=== PATIENT | male | born 1950 | race Caucasian/White ===

== ENCOUNTER 2016-12-18 20:01 | Emergency (ER) | payer OTHER ==
[2016-12-18 20:19] VITALS: BMI 32.8
--- NOTE | 2016-12-18 21:50 | PDOC ---
History of Present Illness - General History Source: Patient, Family Exam Limitations: No Limitations - History of Present Illness Initial Comments: 12/18/16 22:02 Patient is a 66 year old male with no pmhx who presents to the ED with fever, diarrhea and chills. As per family the patient was feeling okay all day and at 5 PM he had soup that was in the refrigerator for few days. Few hours after the patient notes that he developed abdominal discomfort and had diarrhea and chills. He reports having good appetite.even after the episode. He states that he developed fever as well. He saw his PMD this morning and had a normal check up. <Opal Hwang - Last Filed: 12/18/16 22:02> <Komal Moore - Last Filed: 12/19/16 01:00> - General Chief Complaint: Cold Symptoms Stated Complaint: FEVER Time Seen by Provider: 12/18/16 21:50 Past History <Opal Hwang - Last Filed: 12/18/16 22:02> - Suicide/Smoking/Psychosocial Hx Smoking History: Never smoked Hx Alcohol Use: No Drug/Substance Use Hx: No <Komal Moore - Last Filed: 12/19/16 01:00> - Past Medical History Allergies/Adverse Reactions: Allergies Allergy/AdvReac Type Severity Reaction Status Date / Time No Known Allergies Allergy Verified 12/18/16 20:19 Home Medications: Ambulatory Orders Aspirin [ASA -] 81 mg PO DAILY 12/19/16 Metformin HCl [Glucophage] 1,000 mg PO DAILY 12/19/16 Review of Systems - Review of Systems Able to Perform ROS?: Yes Comments:: 12/18/16 22:02 GENERAL/CONSTITUTIONAL: +fever and chills. No weakness. HEAD, EYES, EARS, NOSE AND THROAT: No change in vision. No ear pain or discharge. No sore throat. GASTROINTESTINAL: +diarrhea. No nausea, vomiting or constipation. GENITOURINARY: No dysuria, frequency, or change in urination. CARDIOVASCULAR: No chest pain or shortness of breath. RESPIRATORY: No cough, wheezing, or hemoptysis. MUSCULOSKELETAL: No joint or muscle swelling or pain. No neck or back pain. SKIN: No rash NEUROLOGIC: No headache, vertigo, loss of consciousness, or change in strength/ sensation. ENDOCRINE: No increased thirst. No abnormal weight change. HEMATOLOGIC/LYMPHATIC: No anemia, easy bleeding, or history of blood clots. ALLERGIC/IMMUNOLOGIC: No hives or skin allergy. <Opal Hwang - Last Filed: 12/18/16 22:02> *Physical Exam - Vital Signs Last Vital Signs Temp Pulse Resp BP Pulse Ox 103.1 F H 103 H 20 131/74 99 12/18/16 20:13 12/18/16 20:13 12/18/16 20:13 12/18/16 20:13 12/18/16 20:13 <Opal Hwang - Last Filed: 12/18/16 22:02> - Vital Signs Last Vital Signs Temp Pulse Resp BP Pulse Ox 103.1 F H 103 H 20 131/74 99 12/18/16 20:13 12/18/16 20:13 12/18/16 20:13 12/18/16 20:13 12/18/16 20:13 - Physical Exam Comments: GENERAL: Awake, alert, and fully oriented, in no acute distress HEAD: No signs of trauma EYES: PERRLA, EOMI, sclera anicteric, conjunctiva clear ENT: Auricles normal inspection, hearing grossly normal, nares patent, oropharynx clear without exudates. Dry mucosa NECK: Normal ROM, supple, no lymphadenopathy, JVD, or masses LUNGS: Breath sounds equal, clear to auscultation bilaterally. No wheezes, and no crackles HEART: Regular rate and rhythm, normal S1 and S2, no murmurs, rubs or gallops ABDOMEN: Soft, nontender, normoactive bowel sounds. No guarding, no rebound. No masses EXTREMITIES: Normal range of motion, no edema. No clubbing or cyanosis. No cords, erythema, or tenderness NEUROLOGICAL: Cranial nerves II through XII grossly intact. Normal speech, normal gait SKIN: Warm, Dry, normal turgor, no rashes or lesions noted. <Komal Moore - Last Filed: 12/19/16 01:00> ED Treatment Course - LABORATORY CBC & Chemistry Diagram: 12/19/16 00:00 12/19/16 00:00 <Komal Moore - Last Filed: 12/19/16 01:00> *DC/Admit/Observation/Transfer - Attestations Scribe Attestion: 12/18/16 22:03 Documentation prepared by RAHEL Lozano, acting as general medical practitioner for Komal Moore MD. <Opal Hwang - Last Filed: 12/18/16 22:02> - Discharge Dispostion Admit: No <Komal Moore - Last Filed: 12/19/16 01:00> Diagnosis at time of Disposition: Fever Qualifiers: Fever type: unspecified Qualified Code(s): R50.9 - Fever, unspecified; R50.9 - Fever, unspecified - Discharge Dispostion Disposition: HOME Condition at time of disposition: Stable - Referrals Referrals: Homar Hidalgo MD [Primary Care Provider] -
[2016-12-18] MEDS ORDERED: ACETAMINOPHEN 325 MG TABLET (FP) PO ONE (21:57)
[2016-12-18] MEDS ORDERED: ACETAMINOPHEN 500 MG TABLET (FP) PO ONE (22:24)
[2016-12-18] MEDS ORDERED: ACETAMINOPHEN 325 MG TABLET (FP) ONE (22:30)
[2016-12-18 22:37] VITALS: TEMP 99.8
[2016-12-18] MEDS ORDERED: SODIUM CHLORIDE 1,000 ML IV STA (23:26)
[2016-12-19 00:14] LABS: BASOPHIL 0.7 % (0-2.0); EOSINOPHIL 3.9 % (0-4.5); MCH 31.8 pg (25.7-33.7); MCHC 34.1 g/dl (32.0-35.9); MEAN CELL VOLUME 93.2 fl (80-96); MEAN PLT VOLUME 7.7 fl (7.5-11.1); NEUTROPHILS 77.4 % (42.8-82.8); PLATELET COUNT 223 K/MM3 (134-434); RDW 13.1 % (11.9-15.9); WHITE BLOOD COUNT 11.4 K/mm3 (4.0-10.0)
[2016-12-19 00:20] LABS: URINE APPEARANCE CLEAR; URINE BILIRUBIN NEGATIVE (NEGATIVE); URINE BLOOD NEGATIVE (NEGATIVE); URINE COLOR COLORLESS; URINE GLUCOSE (UA) NEGATIVE (NEGATIVE); URINE KETONE NEGATIVE (NEGATIVE); URINE NITRITE NEGATIVE (NEGATIVE); URINE PROTEIN NEGATIVE (NEGATIVE); URINE UROBILINOGEN NEGATIVE mg/dL (0.2-1.0)
[2016-12-19 00:43] LABS: ALBUMIN 3.8 g/dl (3.4-5.0); ANION GAP 11 (8-16); CALCIUM 8.4 mg/dL (8.5-10.1); CO2 25 mmol/L (21-32); CREATININE 1.2 mg/dL (0.7-1.3); GLUCOSE,RANDOM 122 mg/dL (74-106); SGOT/AST 20 U/L (15-37); SGPT/ALT 22 U/L (12-78)
[2016-12-19 00:44] LABS: ALK PHOS 48 U/L (45-117); BILIRUBIN,TOTAL 0.6 mg/dL (0.2-1.0); TOT PROT 7.4 g/dl (6.4-8.2)
[2016-12-19 01:19] VITALS: BP 115/75; PULSE 83
[2016-12-19 09:03] LABS: URINE LEUK ESTERASE Negative (NEGATIVE)
--- NOTE | 2016-12-21 06:52 | PDOC ---
Patient Follow-up (Call Back) - Post ED Follow - Up Condition at time of discharge: Stable Disposition at time of original discharge: HOME Reason for Call Back: Abnwl. Microbiology (Blood culture was positive for lactose fermenting negative bacilli on preliminary report. Second blood culture no growth as of 48 hours. Will need follow up to recheck for final report)
--- NOTE | 2016-12-21 12:11 | PDOC ---
Patient Follow-up (Call Back) - Post ED Follow - Up Condition at time of discharge: Stable Disposition at time of original discharge: HOME Reason for Call Back: Abnwl. Microbiology (final report on one blood culture Shows Escherichia coli. 2nd bc- culture prelim shows Gram-positive bacilli On preliminary report. Called patient at home and on cell phone to follow-up in order antibiotics based on sensitivity. Left message on both answering machine and home number)
--- NOTE | 2016-12-21 13:37 | PDOC ---
Patient Follow-up (Call Back) - Post ED Follow - Up Condition at time of discharge: Stable Disposition at time of original discharge: HOME Reason for Call Back: Abnwl. Microbiology (RECEIVED CALL FROM DAILY FROM [facility] + GRAM BACILLI ANEROBIC IN ONE BOTTLE, PT. WAS CALLED BY ROCKY CALHOUN LEFT MESSAGES ON CELL AND HOME PHONE IN REGARDS TO + CULTURE.)
== END 2016-12-19 01:19 | disposition home or self-care (01) ==
LOC: JER 20:01
PROC: 3E0337Z Introduction of Electrolytic and Water Balance Substance into Peripheral Vein, Percutaneous Approach (ICD-10-PCS; principal; 2016-12-18)
DX: R50.9 Fever, unspecified (principal)
CPT/HCPCS: 36415; 71010-TC; 80053; 81003; 83605; 85025; 87040; 87086; 87186; 87804; 99282-25

== ENCOUNTER → 2016-12-23 | Emergency (ER) | payer OTHER ==
[2016-12-23 13:50] VITALS: BP 126/96; PULSE 72; TEMP 98.6; BMI 32.8
--- NOTE | 2016-12-23 14:10 | PDOC ---
Attending Attestation - Resident Resident Name: Roslyn Gilman - ED Attending Attestation I have performed the following: I have examined & evaluated the patient, The case was reviewed & discussed with the resident, I agree w/resident's findings & plan, Exceptions are as noted - HPI HPI: 12/23/16 14:08 Called to come to ED for positive blood cultures drawn last week. No Complaints - Physicial Exam PE: 12/23/16 14:09 VSS, Nontoxic, Afebrile - Medical Decision Making 12/23/16 14:[address] Roslyn Gilman's Assessment and Plan
--- NOTE | 2016-12-23 14:20 | PDOC ---
History of Present Illness - General Chief Complaint: Revisit, Lab Variance Stated Complaint: LAB VARIANCE Time Seen by Provider: 12/23/16 14:05 History Source: Patient - History of Present Illness Initial Comments: 12/24/16 20:34 Patient is a 66 y.o. male who was evaluated in our Emergency Department on for fever. Patient now returns to the ED following blood cultures that show E. Coli. Patient states he followed up with his PCP and shows a bottle of Amoxicillin. Patient states he has not measured his temperature since discharge on 12/18 however has experienced subjective fever but no vomiting, chills, shortness of breath or diarrhea. Past History - Past Medical History Allergies/Adverse Reactions: Allergies Allergy/AdvReac Type Severity Reaction Status Date / Time No Known Allergies Allergy Verified 12/24/16 10:01 Home Medications: Ambulatory Orders Aspirin [ASA -] 81 mg PO DAILY 12/19/16 Metformin HCl [Glucophage] 1,000 mg PO DAILY 12/19/16 - Suicide/Smoking/Psychosocial Hx Smoking History: Never smoked Hx Alcohol Use: No Drug/Substance Use Hx: No *Physical Exam - Vital Signs Last Vital Signs Temp Pulse Resp BP Pulse Ox 98.6 F 72 18 126/96 99 12/23/16 13:48 12/23/16 13:48 12/23/16 13:48 12/23/16 13:48 12/23/16 13:48 Medical Decision Making - Medical Decision Making 12/23/16 20:39 Patient is a 66 y.o. male who presented to the ED following a report of E. Coli (+) blood cultures from a 12/18 evaluation in our ED for fever. Patient eloped before physical exam or full work-up could be completed. No IV in place. Patient to be contacted tomorrow. *DC/Admit/Observation/Transfer Diagnosis at time of Disposition: Bacteremia due to Escherichia coli - Discharge Dispostion Disposition: LEFT BEFORE [facility] - Referrals Referrals: Homar Hidalgo MD [Primary Care Provider] -
--- NOTE | 2016-12-24 08:23 | PDOC ---
Patient Follow-up (Call Back) - Post ED Follow - Up Reason for Call Back: Abnwl. Microbiology (+bld cx (ecoli). Pt was alredat contacted w/ results and has returned to ED yesterday but eloped prior to completion of w/u I contacted pt today, reports feeling well w/ no f/c but told to return today to complete reassessment. Pt states he will be here in an hr)
== END | disposition left against medical advice (07) ==
LOC: JER 13:32
DX: R78.81 Bacteremia (principal)
CPT/HCPCS: 99281-25

== ENCOUNTER 2017-01-29 11:49 | Inpatient (IN) | payer OTHER ==
--- NOTE | 2017-01-29 13:32 | PDOC ---
Attending Attestation - HPI HPI: 01/29/17 14:47 The patient is a 66 year old male with a significant PMH of diabetes, HTN, and E. coli bacteremia (12/18) who presents to the emergency department with subjective fever and cough beginning approximately this morning. Allergies: NKA PCP: Dr. Homar Hidalgo - Physicial Exam PE: 01/29/17 14:53 GENERAL: (+) Hot to touch. (+) Flush in face. (+) Fever (T. max 100.5F). Awake, alert, and fully oriented, in no acute distress HEAD: No signs of trauma EYES: PERRLA, EOMI, sclera anicteric, conjunctiva clear ENT: Auricles normal inspection, hearing grossly normal, nares patent, oropharynx clear without exudates. Moist mucosa NECK: Normal ROM, supple, no lymphadenopathy, JVD, or masses LUNGS: (+) Coarse breath sounds, left base. (+) Rhonchi. No wheezes, no crackles. HEART: (+) Tachycardic. Regular rhythm, normal S1 and S2, no murmurs, rubs or gallops ABDOMEN: Soft, nontender, normoactive bowel sounds. No guarding, no rebound. No masses EXTREMITIES: Normal range of motion, no edema. No clubbing or cyanosis. No cords, erythema, or tenderness NEUROLOGICAL: Cranial nerves II through XII grossly intact. Normal speech. SKIN: Warm, Dry, normal turgor, no rashes or lesions noted. <Miki Ty - Last Filed: 01/29/17 14:52> - Resident Resident Name: Ary Molina - ED Attending Attestation I have performed the following: I have examined & evaluated the patient, The case was reviewed & discussed with the resident, I agree w/resident's findings & plan, Exceptions are as noted - Medical Decision Making 01/29/17 13:32 I, Dr. Carolyn Martinez, DO, attest that this document has been prepared under my direction and personally reviewed by me in its entirety. I further attest, that it accurately reflects all work, treatment, procedures and medical decision -making performed by me. 01/29/17 15:57 a/p: 66yo male with cough, fever, flushed -sirs criteria -recently treated for e coli bacteremia -concern for HCAP -will check labs, cultures, cxr, ekg, most likely will need admission 01/29/17 15:58 pt with temp of 100.5 will dose tylenol pt with LLL infiltrate on xray will start HCAP abx, consult placed to dr. mane pt will be admitted to Dr. Brewster as pt goes to Dr. Homar Hidalgo <Carolyn Martinez - Last Filed: 01/29/17 15:58>
[2017-01-29] MEDS ORDERED: SODIUM CHLORIDE 0.9% 1000 ML INFUS.BAG IV ONE (14:34)
[2017-01-29] MEDS ORDERED: ACETAMINOPHEN 325 MG TABLET (FP) PO ONE (14:34)
--- NOTE | 2017-01-29 14:44 | PDOC ---
History of Present Illness <Carolyn Martinez - Last Filed: 01/29/17 16:49> - History of Present Illness Initial Comments: 01/29/17 14:40 66yo man with PMH of diabetes, HTN, E. coli bacteremia (12/18) who presents with 1 day of subjective fever at home and [facility]. He denies any abdominal pain, sob , dysuria, CP, n/v, diarrhea. No recent sick contacts or travel. No rashes. 01/29/17 14:42 <Ary Molina - Last Filed: 01/29/17 17:18> - General Chief Complaint: Pain Stated Complaint: PAIN Time Seen by Provider: 01/29/17 12:45 Past History <Carolyn Martinez - Last Filed: 01/29/17 16:49> - Past Medical History COPD: No Diabetes: Yes - Suicide/Smoking/Psychosocial Hx Smoking History: Never smoked Hx Alcohol Use: Yes (SOCIAL) Drug/Substance Use Hx: No <Ary Molina - Last Filed: 01/29/17 17:18> - Past Medical History Allergies/Adverse Reactions: Allergies Allergy/AdvReac Type Severity Reaction Status Date / Time No Known Allergies Allergy Verified 01/29/17 11:56 Home Medications: Ambulatory Orders Aspirin [ASA -] 81 mg PO DAILY 12/19/16 Metformin HCl [Glucophage] 1,000 mg PO DAILY 12/19/16 *Physical Exam - Vital Signs Last Vital Signs Temp Pulse Resp BP Pulse Ox 99.7 F H 116 H 20 154/83 95 01/29/17 11:50 01/29/17 11:50 01/29/17 11:50 01/29/17 11:50 01/29/17 11:50 <Carolyn Martinez - Last Filed: 01/29/17 16:49> - Vital Signs Last Vital Signs Temp Pulse Resp BP Pulse Ox 99.7 F H 116 H 20 154/83 95 01/29/17 11:50 01/29/17 11:50 01/29/17 11:50 01/29/17 11:50 01/29/17 11:50 - Physical Exam General Appearance: Yes: Nourished, Appropriately Dressed HEENT: positive: TMs Normal, Pharynx Normal Neck: positive: Supple. negative: Lymphadenopathy (R), Lymphadenopathy (L) Respiratory/Chest: positive: Lungs Clear, Normal Breath Sounds Cardiovascular: positive: Regular Rate, S1, S2, Tachycardia Gastrointestinal/Abdominal: positive: Normal Bowel Sounds, Soft, Tenderness Musculoskeletal: negative: CVA Tenderness, Vertebral Tenderness Extremity: positive: Normal Inspection. negative: Pedal Edema Integumentary: positive: Normal Color Neurologic: positive: Fully Oriented, Alert <[place],Ary - Last Filed: 01/29/17 17:18> ED Treatment Course - LABORATORY CBC & Chemistry Diagram: 01/29/17 14:14 01/29/17 14:14 - ADDITIONAL ORDERS Additional order review: Laboratory Results 01/29/17 01/29/17 01/29/17 14:14 14:14 14:14 PT with INR INR PTT (Actin FS) Sodium 136 Potassium 4.0 Chloride 104 Carbon Dioxide 25 Anion Gap 7 L BUN 15 Creatinine 1.2 Creat Clearance w eGFR > 60 Random Glucose 130 H Lactic Acid 2.0 Calcium 8.5 Total Bilirubin 0.6 AST 22 ALT 28 Alkaline Phosphatase 47 Creatine Kinase 158 Troponin I < 0.02 Total Protein 7.4 Albumin 3.8 Urine Color Urine Appearance Urine pH Ur Specific [place] Urine Protein Urine Glucose (UA) Urine Ketones Urine Blood Urine Nitrite Urine Bilirubin Urine Urobilinogen Urine WBC (Auto) Urine RBC (Auto) Urine Bacteria Blood Type A POSITIVE Antibody Screen Negative 01/29/17 01/29/17 14:14 14:14 PT with INR 12.50 H INR 1.11 PTT (Actin FS) 27.8 Sodium Potassium Chloride Carbon Dioxide Anion Gap BUN Creatinine Creat Clearance w eGFR Random Glucose Lactic Acid Calcium Total Bilirubin AST ALT Alkaline Phosphatase Creatine Kinase Troponin I Total Protein Albumin Urine Color Colorless Urine Appearance Clear Urine pH 7.0 D Ur Specific [place] 1.003 Urine Protein Negative Urine Glucose (UA) Negative Urine Ketones Negative Urine Blood 1+ H Urine Nitrite Negative Urine Bilirubin Negative Urine Urobilinogen Negative Urine WBC (Auto) None Urine RBC (Auto) None Urine Bacteria Rare Blood Type Antibody Screen 01/29/17 14:14 RBC 4.12 MCV 93.8 MCHC 33.2 RDW 13.2 MPV 7.6 Neutrophils % 78.9 D Lymphocytes % 9.8 D Monocytes % 6.5 Eosinophils % 4.2 Basophils % 0.6 - Medications Given in the ED: ED Medications Discontinued Medications Generic Name Dose Route Start Last Admin Trade Name Freq PRN Reason Stop Dose Admin Acetaminophen 975 mg 01/29/17 14:34 01/29/17 15:00 Tylenol - PO 01/29/17 14:35 975 mg ONCE ONE Administration Sodium Chloride 1,000 ml 01/29/17 14:34 01/29/17 15:00 Normal Saline - IV 01/29/17 14:35 1,000 ml ONCE ONE Administration <Carolyn Martinez - Last Filed: 01/29/17 16:49> - LABORATORY CBC & Chemistry Diagram: 01/29/17 14:14 01/29/17 14:14 - RADIOLOGY Radiology Studies Ordered: Category Date Time Status CHEST X-RAY PORTABLE* [RAD] Stat Radiology 01/29/17 13:54 Completed The degree of inspiration is somewhat limited. In comparison to a prior radiographic study of 12/24/2016 there has been apparent interval development of minimal to mild focal opacity with the left lower lobe adjacent costophrenic sulcus possibly representing a very small subtle infiltrate. There is no definite pleural effusion. The heart, aniceto and mediastinum appear unremarkable as visualized. IMPRESSION: An equivocal small subtle left lower lobe infiltrate is noted adjacent to the costophrenic sulcus. Correlate clinically and with close follow-up radiography. <Ary Molina - Last Filed: 01/29/17 17:18> Medical Decision Making - Medical Decision Making 01/29/17 14:57 66yo man with PMH of NIDDM and E. coli bacteremia on 12/18 who presents with fever and tachycardia. Will initiate sepsis work-up. CXR reveals small focal opacity in LLL. Labs reveal mild leukocytosis. CBC, BMP 01/29/17 14:14 01/29/17 14:14 Lactate 2.0 UA 1+ blood and preliminary LE is negative. 01/29/17 15:49 Repeat Temperature was 100.5. Case discussed with Dr. Brewster. Patient will be admitted for sepsis (fever, tachycardia) with suspected HCAP. Will give one dose of Vanc and Zosyn. Dr. Hilario consulted for ID. <Ary Molina - Last Filed: 01/29/17 17:18> *DC/Admit/Observation/Transfer - Discharge Dispostion Admit: Yes Decision to Admit order Date/Time: Decision to Admit Order Category Date Time Status Decision to Admit to Hospital Routine Admission 01/29/17 16:48 Ordered <Carolyn Martinez - Last Filed: 01/29/17 16:49> <Ary Molina - Last Filed: 01/29/17 17:18> Diagnosis at time of Disposition: Pneumonia, Fever - Discharge Dispostion Condition at time of disposition: Fair - Referrals Referrals: Homar Hidalgo MD [Primary Care Provider] - - Patient Instructions - Post Discharge Activity
[2017-01-29 14:59] LABS: BASOPHIL 0.6 % (0-2.0); EOSINOPHIL 4.2 % (0-4.5); MCH 31.2 pg (25.7-33.7); MCHC 33.2 g/dl (32.0-35.9); MEAN CELL VOLUME 93.8 fl (80-96); MEAN PLT VOLUME 7.6 fl (7.5-11.1); NEUTROPHILS 78.9 % (42.8-82.8); PLATELET COUNT 240 K/MM3 (134-434); RDW 13.2 % (11.9-15.9); WHITE BLOOD COUNT 12.3 K/mm3 (4.0-10.0)
[2017-01-29] MEDS ORDERED: ACETAMINOPHEN 325 MG TABLET (FP) ONE (14:59)
[2017-01-29 15:15] LABS: URINE APPEARANCE CLEAR; URINE BILIRUBIN NEGATIVE (NEGATIVE); URINE BLOOD 1+ (NEGATIVE); URINE COLOR COLORLESS; URINE GLUCOSE (UA) NEGATIVE (NEGATIVE); URINE KETONE NEGATIVE (NEGATIVE); URINE LEUK ESTERASE NEGATIVE (NEGATIVE); URINE NITRITE NEGATIVE (NEGATIVE); URINE PROTEIN NEGATIVE (NEGATIVE); URINE UROBILINOGEN NEGATIVE mg/dL (0.2-1.0)
[2017-01-29 15:26] LABS: ALBUMIN 3.8 g/dl (3.4-5.0); ANION GAP 7 (8-16); BILIRUBIN,TOTAL 0.6 mg/dL (0.2-1.0); CALCIUM 8.5 mg/dL (8.5-10.1); CO2 25 mmol/L (21-32); CREATININE 1.2 mg/dL (0.7-1.3); GLUCOSE,RANDOM 130 mg/dL (74-106); INR 1.11 (0.82-1.09); PROTHROMBIN TIME (PATIENT) 12.5 SEC (9.98-11.88); SGOT/AST 22 U/L (15-37); SGPT/ALT 28 U/L (12-78); TOT PROT 7.4 g/dl (6.4-8.2)
[2017-01-29 15:28] LABS: ALK PHOS 47 U/L (45-117); CPK 158 IU/L (39-308); TROPONIN I < 0.02 ng/ml (0.00-0.05)
[2017-01-29 15:29] LABS: ACTIVATED PTT 27.8 SECONDS (26.9-34.4)
[2017-01-29 15:34] LABS: URINE BACTERIA RARE /hpf (NONE SEEN)
[2017-01-29] MEDS ORDERED: VANCOMYCIN 1,250 MG in DEXTROSE 5%-WATER - 250 ML IVPB ONE (15:59)
[2017-01-29] MEDS ORDERED: PIPERACIL/TAZOB 3.375 GM 3.375 GM/50 ML PREMIX IVPB ONE (16:00)
[2017-01-29] MEDS ORDERED: PIPERACILLIN/TAZOB 3.375 GM 3.375 GM in DEXTROSE 5%-WATER - 50 ML IVPB ONE (16:15)
[2017-01-29 19:13] VITALS: BMI 31.8
[2017-01-29 19:53] LABS: URINE LEUK ESTERASE Negative (NEGATIVE)
[2017-01-30] MEDS ORDERED: ACETAMINOPHEN 325 MG TABLET (FP) PO PRN (02:19)
[2017-01-30] MEDS: metFORMIN HCL 500 MG TABLET (FP) PO SCH (06:51)
[2017-01-30] MEDS: INSULIN SLIDING SCALE (NOVOLOG) 1 VIAL SQ SCH ×4 (06:53→21:57)
[2017-01-30 07:31] LABS: BASOPHIL 0.8 % (0-2.0); EOSINOPHIL 10.1 % (0-4.5); MCH 31.7 pg (25.7-33.7); MEAN CELL VOLUME 93.2 fl (80-96); MEAN PLT VOLUME 7.9 fl (7.5-11.1); NEUTROPHILS 52.4 % (42.8-82.8); PLATELET COUNT 215 K/MM3 (134-434); RDW 13.3 % (11.9-15.9); WHITE BLOOD COUNT 10.5 K/mm3 (4.0-10.0)
[2017-01-30 08:04] LABS: ALBUMIN 3.4 g/dl (3.4-5.0); ANION GAP 7 (8-16); CALCIUM 8.2 mg/dL (8.5-10.1); CO2 25 mmol/L (21-32); GLUCOSE,RANDOM 116 mg/dL (74-106)
[2017-01-30 08:07] LABS: ALK PHOS 41 U/L (45-117); CREATININE 1.1 mg/dL (0.7-1.3); SGOT/AST 20 U/L (15-37); SGPT/ALT 28 U/L (12-78)
[2017-01-30] MEDS: ASPIRIN 81 MG CHEWABLE TABLETS PO SCH (09:54)
[2017-01-30] MEDS: HEPARIN NA (PORCINE) 5,000 UNITS/ML 1ML VIAL SQ SCH ×2 (09:54→21:57)
[2017-01-30] MEDS ORDERED: LEVOFLOXACIN 500 MG IVPB 500 MG/100 ML BAG IVPB SCH (10:00)
--- NOTE | 2017-01-30 10:57 | HP ---
Admitting History and Physical - Past Surgical History Past Surgical History: Yes: None - Smoking History Smoking history: Never smoked - Alcohol/Substance Use Hx Alcohol Use: Yes (SOCIAL) Home Medications - Allergies Allergies/Adverse Reactions: Allergies Allergy/AdvReac Type Severity Reaction Status Date / Time No Known Allergies Allergy Verified 01/29/17 11:56 - Home Medications Home Medications: Ambulatory Orders Aspirin [ASA -] 81 mg PO DAILY 12/19/16 Metformin HCl [Glucophage] 1,000 mg PO DAILY 12/19/16 Physical Examination Vital Signs: Vital Signs Temperature 99.2 F 01/30/17 09:44 Pulse Rate 65 01/30/17 09:44 Respiratory Rate 18 01/30/17 09:44 Blood Pressure 101/65 01/30/17 09:44 O2 Sat by Pulse Oximetry (%) 97 01/29/17 21:00 Labs: CBC, BMP 01/30/17 06:30 01/30/17 06:30
--- NOTE | 2017-01-30 11:14 | CONSULT ---
Consultation: REQUESTING PROVIDER: CONSULT REQUEST: We have been asked to medically evaluate this patient for PNA. HISTORY OF PRESENT ILLNESS: 66M w/ hx of a stable pulmonary nodule (receiving CT scans q6 months), NIDDM, HTN, and recent E. coli bacteremia (12/18) who presents with one day of subjective fevers. Pt denies any accompanying symptoms including chills, sick contacts, recent travel, nasal congestion, rhinorrhea, sore throat, headache, chest pain, palpitations, SOB, wheezing, cough, abdominal pain, n/v/d/c, and dysuria. Pt is not on any pulmonary medications, and denies any previous lung problems. He has no surgical hx, no NKDA, no toxic habits, no family hx of medical problems. He used to work in construction, denies any exposure to asbestosis. REVIEW OF SYSTEMS: CONSTITUTIONAL: Absent: chills, diaphoresis, generalized weakness, malaise, loss of appetite, weight change present: fevers HEENT: Absent: rhinorrhea, nasal congestion, throat pain, throat swelling, difficulty swallowing, mouth swelling, ear pain, eye pain, visual changes CARDIOVASCULAR: Absent: chest pain, syncope, palpitations, irregular heart rate, lightheadedness , peripheral edema RESPIRATORY: Absent: cough, shortness of breath, dyspnea with exertion, orthopnea, wheezing, stridor, hemoptysis GASTROINTESTINAL: Absent: abdominal pain, abdominal distension, nausea, vomiting, diarrhea, constipation, melena, hematochezia GENITOURINARY: Absent: dysuria, frequency, urgency, hesitancy, hematuria, flank pain, genital pain MUSCULOSKELETAL: Absent: myalgia, arthralgia, joint swelling, back pain, neck pain SKIN: Absent: rash, itching, pallor HEMATOLOGIC/IMMUNOLOGIC: Absent: easy bleeding, easy bruising, lymphadenopathy, frequent infections ENDOCRINE: Absent: unexplained weight gain, unexplained weight loss, heat intolerance, cold intolerance NEUROLOGIC: Absent: headache, focal weakness or paresthesias, dizziness, unsteady gait, seizure, mental status changes, bladder or bowel incontinence PSYCHIATRIC: Absent: anxiety, depression, suicidal or homicidal ideation, hallucinations. PHYSICAL EXAMINATION Vital Signs - 24 hr 01/29/17 01/29/17 01/29/17 11:50 15:00 19:00 Temperature 99.7 F H 101.0 F H 98 F Pulse Rate 116 H 76 Pulse Rate [ 122 H Right] Respiratory 20 19 18 Rate Blood Pressure 154/83 106/64 Blood Pressure 148/78 [Right Arm] O2 Sat by Pulse 95 99 97 Oximetry (%) 01/29/17 01/29/17 01/30/17 21:00 22:00 02:00 Temperature 100.8 F H 100.5 F H Pulse Rate 83 Pulse Rate [ Right] Respiratory 18 Rate Blood Pressure 136/74 Blood Pressure [Right Arm] O2 Sat by Pulse 97 Oximetry (%) 01/30/17 01/30/17 06:22 09:44 Temperature 99.6 F 99.2 F Pulse Rate 78 65 Pulse Rate [ Right] Respiratory 18 18 Rate Blood Pressure 112/61 101/65 Blood Pressure [Right Arm] O2 Sat by Pulse Oximetry (%) GENERAL: Awake, alert, and fully oriented, in no acute distress. HEENT: moist mucous membranes, no nasal congestion, no pharyngeal exudates or erythem NECK: Normal range of motion, supple without lymphadenopathy, JVD, or masses. LUNGS: Breath sounds equal, clear to auscultation bilaterally. No wheezes, and no crackles. No accessory muscle use. HEART: Regular rate and rhythm, normal S1 and S2 without murmur, rub or gallop. ABDOMEN: Soft, nontender, not distended, normoactive bowel sounds, no guarding, no rebound, no masses. No hepatomegaly or splenomegaly. MUSCULOSKELETAL: Normal range of motion at all joints. No bony deformities or tenderness. No CVA tenderness. UPPER EXTREMITIES: 2+ pulses, warm, well-perfused. No cyanosis. No clubbing. Cap refill <2 seconds. No peripheral edema. LOWER EXTREMITIES: 2+ pulses, warm, well-perfused. No calf tenderness. No peripheral edema. NEUROLOGICAL: Cranial nerves II-XII intact. Normal speech. Normal gait. PSYCHIATRIC: Cooperative. Good eye contact. Appropriate mood and affect. SKIN: Warm, dry, normal turgor, no rashes or lesions noted. Laboratory Results - last 24 hr 01/29/17 01/29/17 01/29/17 14:14 14:14 14:14 WBC 12.3 H RBC 4.12 Hgb 12.8 Hct 38.6 MCV 93.8 MCH 31.2 MCHC 33.2 RDW 13.2 Plt Count 240 D MPV 7.6 Neutrophils % 78.9 D Lymphocytes % 9.8 D Monocytes % 6.5 Eosinophils % 4.2 Basophils % 0.6 PT with INR 12.50 H INR 1.11 PTT (Actin FS) 27.8 Sodium Potassium Chloride Carbon Dioxide Anion Gap BUN Creatinine Creat Clearance w eGFR POC Glucometer Random Glucose Lactic Acid Calcium Total Bilirubin AST ALT Alkaline Phosphatase Creatine Kinase Creatine Kinase Index CK-MB (CK-2) Troponin I Total Protein Albumin Urine Color Colorless Urine Appearance Clear Urine pH 7.0 D Ur Specific [place] 1.003 Urine Protein Negative Urine Glucose (UA) Negative Urine Ketones Negative Urine Blood 1+ H Urine Nitrite Negative Urine Bilirubin Negative Urine Urobilinogen Negative Ur Leukocyte Esterase Negative Urine WBC (Auto) None Urine RBC (Auto) None Urine Bacteria Rare Blood Type Antibody Screen 01/29/17 01/29/17 01/29/17 14:14 14:14 14:14 WBC RBC Hgb Hct MCV MCH MCHC RDW Plt Count MPV Neutrophils % Lymphocytes % Monocytes % Eosinophils % Basophils % PT with INR INR PTT (Actin FS) Sodium 136 Potassium 4.0 Chloride 104 Carbon Dioxide 25 Anion Gap 7 L BUN 15 Creatinine 1.2 Creat Clearance w eGFR > 60 POC Glucometer Random Glucose 130 H Lactic Acid 2.0 Calcium 8.5 Total Bilirubin 0.6 AST 22 ALT 28 Alkaline Phosphatase 47 Creatine Kinase 158 Creatine Kinase Index 0.6 CK-MB (CK-2) < 1.000 Troponin I < 0.02 Total Protein 7.4 Albumin 3.8 Urine Color Urine Appearance Urine pH Ur Specific [place] Urine Protein Urine Glucose (UA) Urine Ketones Urine Blood Urine Nitrite Urine Bilirubin Urine Urobilinogen Ur Leukocyte Esterase Urine WBC (Auto) Urine RBC (Auto) Urine Bacteria Blood Type A POSITIVE Antibody Screen Negative 01/30/17 01/30/17 01/30/17 06:30 06:30 06:30 WBC 10.5 H RBC 3.95 L Hgb 12.5 Hct 36.9 MCV 93.2 MCH 31.7 MCHC 34.0 RDW 13.3 Plt Count 215 MPV 7.9 Neutrophils % 52.4 D Lymphocytes % 28.8 D Monocytes % 7.9 Eosinophils % 10.1 H D Basophils % 0.8 PT with INR INR PTT (Actin FS) Sodium 137 Potassium 4.0 Chloride 105 Carbon Dioxide 25 Anion Gap 7 L BUN 14 Creatinine 1.1 Creat Clearance w eGFR > 60 POC Glucometer Random Glucose 116 H Lactic Acid 0.8 Calcium 8.2 L Total Bilirubin 1.0 D AST 20 ALT 28 Alkaline Phosphatase 41 L Creatine Kinase Creatine Kinase Index CK-MB (CK-2) Troponin I Total Protein 7.0 Albumin 3.4 Urine Color Urine Appearance Urine pH Ur Specific [place] Urine Protein Urine Glucose (UA) Urine Ketones Urine Blood Urine Nitrite Urine Bilirubin Urine Urobilinogen Ur Leukocyte Esterase Urine WBC (Auto) Urine RBC (Auto) Urine Bacteria Blood Type Antibody Screen 01/30/17 06:53 WBC RBC Hgb Hct MCV MCH MCHC RDW Plt Count MPV Neutrophils % Lymphocytes % Monocytes % Eosinophils % Basophils % PT with INR INR PTT (Actin FS) Sodium Potassium Chloride Carbon Dioxide Anion Gap BUN Creatinine Creat Clearance w eGFR POC Glucometer 123 Random Glucose Lactic Acid Calcium Total Bilirubin AST ALT Alkaline Phosphatase Creatine Kinase Creatine Kinase Index CK-MB (CK-2) Troponin I Total Protein Albumin Urine Color Urine Appearance Urine pH Ur Specific [place] Urine Protein Urine Glucose (UA) Urine Ketones Urine Blood Urine Nitrite Urine Bilirubin Urine Urobilinogen Ur Leukocyte Esterase Urine WBC (Auto) Urine RBC (Auto) Urine Bacteria Blood Type Antibody Screen Active Medications Generic Name Dose Route Start Last Admin Trade Name Freq PRN Reason Stop Dose Admin Acetaminophen 650 mg 01/30/17 02:19 Tylenol - PO Q6H PRN FEVER OR PAIN Aspirin 81 mg 01/30/17 10:00 01/30/17 09:54 Asa - PO 81 mg DAILY CHARI Administration Heparin Sodium (Porcine) 5,000 unit 01/30/17 10:00 01/30/17 09:54 Heparin - SQ 5,000 unit BID CHARI Administration Levofloxacin 500 mg in 100 mls @ 100 mls/hr 01/30/17 10:00 01/30/17 09:52 Levaquin 500 Mg Premixed Ivpb - IVPB 100 mls/hr DAILY CHARI Administration Insulin Aspart 1 vial 01/30/17 07:00 01/30/17 06:53 Novolog Vial Sliding Scale - SQ Not Given ACHS [facility] Protocol Metformin HCl 1,000 mg 01/30/17 07:00 01/30/17 06:51 Glucophage - PO 1,000 mg ACBK CHARI Administration CXR: LLL mild opacity consistent with possible infiltrate ASSESSMENT/PLAN: 66M w/ hx of a stable pulmonary nodule (receiving CT scans q6 months), NIDDM, HTN, and recent E. coli bacteremia (12/18) who presents with acute fever. #sepsis -fever, tachycardia, leukocytosis -possibly 2/2 PNA. Although no hx of SOB, and pt is satting well on RA with normal pulmonary exam, there is a possible infiltrate on CXR. -abx per ID -duonebs PRN -incentive spirometry -O2 via NC if desatting #pulmonary nodule -stable as per pt who reports he was last scanned 1 month ago Rest of care per medical team. Plan to be discussed with attending, Dr. Jewell. Dispo: We will continue to follow the patient. Thank you for this consultative opportunity. -Santiago Lancaster MD PGY1 Pulmonology Team Visit type - Emergency Visit Emergency Visit: Yes ED Registration Date: 01/29/17 Care time: The patient presented to the Emergency Department on the above date and was hospitalized for further evaluation of their emergent condition. - New Patient This patient is new to me today: Yes Date on this admission: 01/30/17 - Critical Care Critical Care patient: No
--- NOTE | 2017-01-30 11:32 | PN ---
Teaching Attending Note Name of Resident: Santiago Lancaster ATTENDING PHYSICIAN STATEMENT I saw and evaluated the patient. I reviewed the resident's note and discussed the case with the resident. I agree with the resident's findings and plan as documented. SUBJECTIVE: 66 M, known right precarinal LN (7mm x 15mm), NIDDM, HTN, and recent E. coli bacteremia (12/18). Admitted via the ER due to fevers. Patient denies rhinorrhea, sore throat, [place], chest pain, palpitations, SOB, wheezing, cough, or abdominal symptoms. No apparent travel history or sick contacts. CXR: LLL opacity / infiltrate. Intake & Output 01/27/17 01/28/17 01/29/17 01/30/17 23:59 23:59 23:59 23:59 Intake Total 250 0 Balance 250 0 Weight 174 lb Last Vital Signs Temp Pulse Resp BP Pulse Ox 99.2 F 65 18 101/65 97 01/30/17 09:44 01/30/17 09:44 01/30/17 09:44 01/30/17 09:44 01/29/17 21:00 Active Medications Acetaminophen (Tylenol -) 650 mg PO Q6H PRN PRN Reason: FEVER OR PAIN Aspirin (Asa -) 81 mg PO DAILY REPLACED BY [facility] Last Admin: 01/30/17 09:54 Dose: 81 mg Heparin Sodium (Porcine) (Heparin -) 5,000 unit SQ BID REPLACED BY [facility] Last Admin: 01/30/17 09:54 Dose: 5,000 unit Levofloxacin (Levaquin 500 Mg Premixed Ivpb -) 500 mg in 100 mls @ 100 mls/hr IVPB DAILY REPLACED BY [facility] Last Admin: 01/30/17 09:52 Dose: 100 mls/hr Insulin Aspart (Novolog Vial Sliding Scale -) 1 vial SQ ACHS REPLACED BY [facility] PRN Reason: Protocol Last Admin: 01/30/17 06:53 Dose: Not Given Metformin HCl (Glucophage -) 1,000 mg PO ACBK REPLACED BY [facility] Last Admin: 01/30/17 06:51 Dose: 1,000 mg GENERAL: Awake, alert, and fully oriented, in no acute distress. HEENT: moist mucous membranes, no nasal congestion, no pharyngeal exudates or erythem NECK: Normal range of motion, supple without lymphadenopathy, JVD, or masses. LUNGS: Clear to auscultation bilaterally. No wheezes, and no crackles. No accessory muscle use. HEART: Regular rate and rhythm, normal S1 and S2 without murmur, rub or gallop. ABDOMEN: Soft, nontender, not distended, normoactive bowel sounds, no guarding, no rebound, no masses. No hepatomegaly or splenomegaly. MUSCULOSKELETAL: Normal range of motion at all joints. No bony deformities or tenderness. No CVA tenderness. UPPER EXTREMITIES: 2+ pulses, warm, well-perfused. No cyanosis. No clubbing. Cap refill <2 seconds. No peripheral edema. LOWER EXTREMITIES: 2+ pulses, warm, well-perfused. No calf tenderness. No peripheral edema. NEUROLOGICAL: Cranial nerves II-XII intact. Normal speech. Normal gait. PSYCHIATRIC: Cooperative. Good eye contact. Appropriate mood and affect. SKIN: Warm, dry, normal turgor, no rashes or lesions noted. Laboratory Results - last 24 hr 01/29/17 01/29/17 01/29/17 14:14 14:14 14:14 WBC 12.3 H RBC 4.12 Hgb 12.8 Hct 38.6 MCV 93.8 MCH 31.2 MCHC 33.2 RDW 13.2 Plt Count 240 D MPV 7.6 Neutrophils % 78.9 D Lymphocytes % 9.8 D Monocytes % 6.5 Eosinophils % 4.2 Basophils % 0.6 PT with INR 12.50 H INR 1.11 PTT (Actin FS) 27.8 Sodium Potassium Chloride Carbon Dioxide Anion Gap BUN Creatinine Creat Clearance w eGFR POC Glucometer Random Glucose Lactic Acid Calcium Total Bilirubin AST ALT Alkaline Phosphatase Creatine Kinase Creatine Kinase Index CK-MB (CK-2) Troponin I Total Protein Albumin Urine Color Colorless Urine Appearance Clear Urine pH 7.0 D Ur Specific [place] 1.003 Urine Protein Negative Urine Glucose (UA) Negative Urine Ketones Negative Urine Blood 1+ H Urine Nitrite Negative Urine Bilirubin Negative Urine Urobilinogen Negative Ur Leukocyte Esterase Negative Urine WBC (Auto) None Urine RBC (Auto) None Urine Bacteria Rare Blood Type Antibody Screen 01/29/17 01/29/17 01/29/17 14:14 14:14 14:14 WBC RBC Hgb Hct MCV MCH MCHC RDW Plt Count MPV Neutrophils % Lymphocytes % Monocytes % Eosinophils % Basophils % PT with INR INR PTT (Actin FS) Sodium 136 Potassium 4.0 Chloride 104 Carbon Dioxide 25 Anion Gap 7 L BUN 15 Creatinine 1.2 Creat Clearance w eGFR > 60 POC Glucometer Random Glucose 130 H Lactic Acid 2.0 Calcium 8.5 Total Bilirubin 0.6 AST 22 ALT 28 Alkaline Phosphatase 47 Creatine Kinase 158 Creatine Kinase Index 0.6 CK-MB (CK-2) < 1.000 Troponin I < 0.02 Total Protein 7.4 Albumin 3.8 Urine Color Urine Appearance Urine pH Ur Specific [place] Urine Protein Urine Glucose (UA) Urine Ketones Urine Blood Urine Nitrite Urine Bilirubin Urine Urobilinogen Ur Leukocyte Esterase Urine WBC (Auto) Urine RBC (Auto) Urine Bacteria Blood Type A POSITIVE Antibody Screen Negative 01/30/17 01/30/17 01/30/17 06:30 06:30 06:30 WBC 10.5 H RBC 3.95 L Hgb 12.5 Hct 36.9 MCV 93.2 MCH 31.7 MCHC 34.0 RDW 13.3 Plt Count 215 MPV 7.9 Neutrophils % 52.4 D Lymphocytes % 28.8 D Monocytes % 7.9 Eosinophils % 10.1 H D Basophils % 0.8 PT with INR INR PTT (Actin FS) Sodium 137 Potassium 4.0 Chloride 105 Carbon Dioxide 25 Anion Gap 7 L BUN 14 Creatinine 1.1 Creat Clearance w eGFR > 60 POC Glucometer Random Glucose 116 H Lactic Acid 0.8 Calcium 8.2 L Total Bilirubin 1.0 D AST 20 ALT 28 Alkaline Phosphatase 41 L Creatine Kinase Creatine Kinase Index CK-MB (CK-2) Troponin I Total Protein 7.0 Albumin 3.4 Urine Color Urine Appearance Urine pH Ur Specific [place] Urine Protein Urine Glucose (UA) Urine Ketones Urine Blood Urine Nitrite Urine Bilirubin Urine Urobilinogen Ur Leukocyte Esterase Urine WBC (Auto) Urine RBC (Auto) Urine Bacteria Blood Type Antibody Screen 01/30/17 06:53 WBC RBC Hgb Hct MCV MCH MCHC RDW Plt Count MPV Neutrophils % Lymphocytes % Monocytes % Eosinophils % Basophils % PT with INR INR PTT (Actin FS) Sodium Potassium Chloride Carbon Dioxide Anion Gap BUN Creatinine Creat Clearance w eGFR POC Glucometer 123 Random Glucose Lactic Acid Calcium Total Bilirubin AST ALT Alkaline Phosphatase Creatine Kinase Creatine Kinase Index CK-MB (CK-2) Troponin I Total Protein Albumin Urine Color Urine Appearance Urine pH Ur Specific [place] Urine Protein Urine Glucose (UA) Urine Ketones Urine Blood Urine Nitrite Urine Bilirubin Urine Urobilinogen Ur Leukocyte Esterase Urine WBC (Auto) Urine RBC (Auto) Urine Bacteria Blood Type Antibody Screen ASSESSMENT/PLAN: LLL CAP Right precarinal LN (7mm x 15mm) NIDDM HTN Recent E. coli bacteremia (12/18). Agree with Levaquin O2 as needed Follow cultures (all are pending) Check urinary antigen BD TX PRN Incentive Spirometry / Ambulate Thank you. Dr Jewell
--- NOTE | 2017-01-30 11:36 | EKG ---
Test Reason : Blood Pressure : / mmHG Vent. 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 RATE HAS INCREASED BY 39 BPM Confirmed by IRA AMBRIZ, RICKY ([id number]) on 01/30/2017 11:36:32 AM Referred By: Confirmed By:RICKY ROTH MD
--- NOTE | 2017-01-30 17:21 | CON.ID ---
Consult Consult Specialty:: Infectious Disease - History of Present Illness History of Present Illness: This is a 66 y.o. male with history of DM, HTN, and E. coli bacteremia (? source ) discharged in Nov, who presented to the ER for subjective fever/chills that began yesterday. Pt denies h/a, cough, myalgias, dyspnea, sore throat, facial tenderness, chest pain, abd pain/n/v/d or dysuria. He denies any sick contacts or recent travel. In the ER he was noted to have temp of 101F and mild leukocytosis. CXR shows a LLL opacity/ infiltrate. Currently patient is alert, afebrile, without distress. (Family member translated. - History Source History Provided By: Patient Limitations to Obtaining History: No Limitations - Past Medical History [employer]: No: Alzheimer's, CVA, Dementia, Migraine, Multiple Sclerosis, Peripheral Neuropathy, Parkinson's, Seizure, Syncope, TIA, Vertigo, Other Cardio/Vascular: Yes: HTN. No: AFIB, Aneurysm, Aortic Insufficiency, Aortic Stenosis, CAD, CHF, Deep Vein Thrombosis, Hyperlipdemia, [place], Mitral Insufficiency, Mitral Stenosis, Murmur, Pulmonary Hypertension, Other Pulmonary: No: Asthma, Bronchitis, Cancer, COPD, O2 Dependent, Pneumonia, Previously Intubated, Pulmonary Embolus, Pulmonary Fibrosis, Sleep Apnea, Other Infectious Disease: Yes: Other (previous E. coli Bacteremia) Endocrine: Yes: Diabetes Mellitus - Past Surgical History Past Surgical History: Yes: None - Alcohol/Substance Use Hx Alcohol Use: Yes (SOCIAL) - Smoking History Smoking history: Never smoked - Social History History of Recent Travel: No Home Medications - Allergies Allergies/Adverse Reactions: Allergies Allergy/AdvReac Type Severity Reaction Status Date / Time No Known Allergies Allergy Verified 01/29/17 11:56 - Home Medications Home Medications: Ambulatory Orders Aspirin [ASA -] 81 mg PO DAILY 12/19/16 Metformin HCl [Glucophage] 1,000 mg PO DAILY 12/19/16 Review of Systems - Review of Systems Constitutional: reports: No Symptoms Eyes: reports: No Symptoms HENT: reports: No Symptoms Neck: reports: No Symptoms Cardiovascular: reports: No Symptoms Respiratory: reports: No Symptoms Gastrointestinal: reports: No Symptoms Genitourinary: reports: No Symptoms Musculoskeletal: reports: No Symptoms Integumentary: reports: No Symptoms Neurological: reports: No Symptoms Endocrine: reports: No Symptoms Hematology/Lymphatic: reports: No Symptoms Psychiatric: reports: No Symptoms Physical Exam Vital Signs: Vital Signs Temperature 98.4 F 01/30/17 14:11 Pulse Rate 66 01/30/17 14:11 Respiratory Rate 20 01/30/17 14:11 Blood Pressure 95/54 01/30/17 14:11 O2 Sat by Pulse Oximetry (%) 95 01/30/17 10:00 Constitutional: Yes: Well Nourished, No Distress, Calm Eyes: Yes: WNL HENT: Yes: WNL Neck: Yes: Supple, Trachea Midline Cardiovascular: Yes: Regular Rate and Rhythm Respiratory: Yes: CTA Bilaterally Gastrointestinal: Yes: Normal Bowel Sounds, Soft ...Rectal Exam: Yes: Deferred Renal/: Yes: WNL Musculoskeletal: Yes: WNL Extremities: Yes: WNL Edema: No Integumentary: Yes: WNL Neurological: Yes: Alert, Oriented Psychiatric: Yes: Alert Labs: CBC, BMP 01/30/17 06:30 01/30/17 06:30 Microbiology 01/29/17 14:14 Blood - Peripheral Venous Blood Culture - Preliminary NO GROWTH OBTAINED AFTER 24 HOURS, INCUBATION TO CONTINUE FOR 4 DAYS. 01/29/17 14:14 Blood - Peripheral Venous Blood Culture - Preliminary NO GROWTH OBTAINED AFTER 24 HOURS, INCUBATION TO CONTINUE FOR 4 DAYS. 01/29/17 14:14 Urine - Urine Clean Catch Urine Culture - Final NO GROWTH OBTAINED Imaging - Results X-ray: Report Reviewed Problem List - Problems (1) Fever Code(s): R50.9 - FEVER, UNSPECIFIED (2) Pneumonia Code(s): J18.9 - PNEUMONIA, UNSPECIFIED ORGANISM Assessment/Plan 66 y.o. male with DM, HTN, and E. coli bacteremia on previous hospital admission presents with fever and chills and nonspecific cough (not currently) that began yesterday morning. Fever Leukocytosis Possible LLL pneumonia/HCAP - will continue Levaquin at higher dose - cont. monitor temps/vitals - urinary antigens pending so far blood and urine cultures with no growth pt stable at this time will f/u
[2017-01-30] MEDS ORDERED: INSULIN (NOVOLOG) ASPART 100 UNITS/ML 10ML VIAL ONE (20:28)
[2017-01-31] MEDS: metFORMIN HCL 500 MG TABLET (FP) PO SCH (06:38)
[2017-01-31] MEDS: INSULIN SLIDING SCALE (NOVOLOG) 1 VIAL SQ SCH ×4 (06:38→22:36)
[2017-01-31] MEDS: HEPARIN NA (PORCINE) 5,000 UNITS/ML 1ML VIAL SQ SCH ×2 (09:46→22:36)
[2017-01-31] MEDS: ASPIRIN 81 MG CHEWABLE TABLETS PO SCH (09:46)
[2017-01-31] MEDS ORDERED: LEVOFLOXACIN 750 MG IVPB 750 MG/150 ML BAG IVPB SCH (10:00)
--- NOTE | 2017-01-31 12:39 | PN ---
Progress Note, Physician History of Present Illness: Pt feeling well. No fever/chills. No chest pain/shortness of breath/cough/abd pain/n/v/d/dysuria. Eating, comfortable. - Current Medication List Current Medications: Active Medications Acetaminophen (Tylenol -) 650 mg PO Q6H PRN PRN Reason: FEVER OR PAIN Aspirin (Asa -) 81 mg PO DAILY [facility] Last Admin: 01/31/17 09:46 Dose: 81 mg Heparin Sodium (Porcine) (Heparin -) 5,000 unit SQ BID [facility] Last Admin: 01/31/17 09:46 Dose: 5,000 unit Levofloxacin (Levaquin 750 Mg Premixed Ivpb -) 750 mg in 150 mls @ 100 mls/hr IVPB DAILY [facility] Last Admin: 01/31/17 09:46 Dose: 100 mls/hr Insulin Aspart (Novolog Vial Sliding Scale -) 1 vial SQ ACHS [facility] PRN Reason: Protocol Last Admin: 01/31/17 11:55 Dose: Not Given Metformin HCl (Glucophage -) 1,000 mg PO ACBK [facility] Last Admin: 01/31/17 06:38 Dose: 1,000 mg - Objective Vital Signs: Vital Signs Temperature 98.0 F 01/31/17 09:00 Pulse Rate 60 01/31/17 09:00 Respiratory Rate 18 01/31/17 09:00 Blood Pressure 109/76 01/31/17 09:00 O2 Sat by Pulse Oximetry (%) 97 01/31/17 09:00 Constitutional: Yes: No Distress, Calm Neck: Yes: Supple Cardiovascular: Yes: Regular Rate and Rhythm Respiratory: Yes: CTA Bilaterally Gastrointestinal: Yes: Normal Bowel Sounds, Soft Genitourinary: Yes: WNL Musculoskeletal: Yes: WNL Extremities: Yes: WNL Edema: No Integumentary: Yes: WNL Neurological: Yes: Alert, Oriented Labs: CBC, BMP 01/30/17 06:30 01/30/17 06:30 INR, PTT INR 1.11 (0.82-1.09) 01/29/17 14:14 Microbiology 01/30/17 22:05 Urine For Antigen Detection Legionella Antigen - Final 01/30/17 22:05 Urine For Antigen Detection Streptococcus pneumoniae Antigen (M - Final 01/29/17 14:14 Blood - Peripheral Venous Blood Culture - Preliminary NO GROWTH OBTAINED AFTER 24 HOURS, INCUBATION TO CONTINUE FOR 4 DAYS. 01/29/17 14:14 Blood - Peripheral Venous Blood Culture - Preliminary NO GROWTH OBTAINED AFTER 24 HOURS, INCUBATION TO CONTINUE FOR 4 DAYS. 01/29/17 14:14 Urine - Urine Clean Catch Urine Culture - Final NO GROWTH OBTAINED Problem List - Problems (1) Fever Code(s): R50.9 - FEVER, UNSPECIFIED (2) Pneumonia Code(s): J18.9 - PNEUMONIA, UNSPECIFIED ORGANISM Assessment/Plan 66 y.o. male with DM, HTN, and E. coli bacteremia on previous hospital admission (unclear source) presented with fever and chills and nonspecific cough Fever - resolved Leukocytosis- resolved Possible LLL pneumonia - although no respiratory distress/cough - on Levaquin doing well - switch to po - blood cultures/urine cultures no growth in 24 hrs - if remains stable/afebrile, and blood cultures remains (-) ok to d/c home
--- NOTE | 2017-01-31 13:47 | PN ---
Progress Note, Physician History of Present Illness: pulmonary alert,nad,-sob,-cough - Current Medication List Current Medications: Active Medications Acetaminophen (Tylenol -) 650 mg PO Q6H PRN PRN Reason: FEVER OR PAIN Aspirin (Asa -) 81 mg PO DAILY [facility] Last Admin: 01/31/17 09:46 Dose: 81 mg Heparin Sodium (Porcine) (Heparin -) 5,000 unit SQ BID [facility] Last Admin: 01/31/17 09:46 Dose: 5,000 unit Insulin Aspart (Novolog Vial Sliding Scale -) 1 vial SQ ACHS [facility] PRN Reason: Protocol Last Admin: 01/31/17 11:55 Dose: Not Given Levofloxacin (Levaquin) 750 mg PO DAILY [facility] Metformin HCl (Glucophage -) 1,000 mg PO ACBK [facility] Last Admin: 01/31/17 06:38 Dose: 1,000 mg - Objective Vital Signs: Vital Signs Temperature 98.0 F 01/31/17 09:00 Pulse Rate 60 01/31/17 09:00 Respiratory Rate 18 01/31/17 09:00 Blood Pressure 109/76 01/31/17 09:00 O2 Sat by Pulse Oximetry (%) 97 01/31/17 09:00 Constitutional: Yes: Well Nourished, Calm Eyes: Yes: WNL HENT: Yes: WNL Neck: Yes: WNL Cardiovascular: Yes: Regular Rate and Rhythm, S1, S2 Respiratory: Yes: Diminished, Rales (few crackles left base) Gastrointestinal: Yes: Normal Bowel Sounds, Soft Extremities: Yes: WNL Edema: No Labs: CBC, BMP 01/30/17 06:30 01/30/17 06:30 INR, PTT INR 1.11 (0.82-1.09) 01/29/17 14:14 Problem List - Problems (1) Fever Code(s): R50.9 - FEVER, UNSPECIFIED (2) Pneumonia Code(s): J18.9 - PNEUMONIA, UNSPECIFIED ORGANISM Assessment/Plan ASSESSMENT/PLAN: LLL CAP Right precarinal LN (7mm x 15mm) NIDDM HTN Recent E. coli bacteremia (12/18). Levaquin O2 as needed Follow cultures (all are pending) Check urinary antigen BD TX PRN Incentive Spirometry / Ambulate Chest ct DR MACK
--- NOTE | 2017-01-31 14:38 | PN ---
Physical Exam: SUBJECTIVE: Patient seen and examined. No acute events overnight. Pt has no complaints. He denies SOB, cough, and wheezing. OBJECTIVE: Vital Signs Period Temp Pulse Resp BP Sys/Rose Pulse Ox Last 24 Hr 98.0 F-98.7 F 60-63 18-20 106-120/62-76 95-97 ENERAL: Awake, alert, and fully oriented, in no acute distress. HEENT: moist mucous membranes, no nasal congestion, no pharyngeal exudates or erythema NECK: Normal range of motion, supple without lymphadenopathy, JVD, or masses. LUNGS: Breath sounds equal, clear to auscultation bilaterally. No wheezes, and no crackles. No accessory muscle use. HEART: Regular rate and rhythm, normal S1 and S2 without murmur, rub or gallop. ABDOMEN: Soft, nontender, not distended, normoactive bowel sounds, no guarding, no rebound, no masses. No hepatomegaly or splenomegaly. MUSCULOSKELETAL: no LE edema NEUROLOGICAL: Cranial nerves II-XII intact. Normal speech. PSYCHIATRIC: Cooperative. Good eye contact. Appropriate mood and affect. SKIN: Warm, dry, normal turgor, no rashes or lesions noted. Laboratory Results - last 24 hr 01/30/17 01/30/17 01/31/17 17:04 21:56 06:37 POC Glucometer 146 122 117 01/31/17 11:54 POC Glucometer 93 Active Medications Generic Name Dose Route Start Last Admin Trade Name Freq PRN Reason Stop Dose Admin Acetaminophen 650 mg 01/30/17 02:19 Tylenol - PO Q6H PRN FEVER OR PAIN Aspirin 81 mg 01/30/17 10:00 01/31/17 09:46 Asa - PO 81 mg DAILY [facility] Administration Heparin Sodium (Porcine) 5,000 unit 01/30/17 10:00 01/31/17 09:46 Heparin - SQ 5,000 unit BID CHARI Administration Insulin Aspart 1 vial 01/30/17 07:00 01/31/17 11:55 Novolog Vial Sliding Scale - SQ Not Given [facility] Protocol Levofloxacin 750 mg 02/01/17 10:00 Levaquin PO DAILY [facility] Metformin HCl 1,000 mg 01/30/17 07:00 01/31/17 06:38 Glucophage - PO 1,000 mg ACBK CHARI Administration ASSESSMENT/PLAN: 66M w/ hx of a stable pulmonary nodule (receiving CT scans q6 months), NIDDM, HTN, and recent E. coli bacteremia (12/18) who presents with acute fever. #sepsis -fever, tachycardia, leukocytosis -possibly 2/2 PNA. Although no hx of SOB, and pt is satting well on RA with normal pulmonary exam, there is a possible infiltrate on CXR. -abx per ID -duonebs PRN -incentive spirometry -O2 via NC if desatting #pulmonary nodule -stable as per pt who reports he was last scanned 1 month ago Rest of care per medical team. Plan discussed with attending, Dr. Schmitt. Dispo: We will continue to follow the patient. Thank you for this consultative opportunity. -Santiago Lancaster MD PGY1 Pulmonology Team Visit type - Emergency Visit Emergency Visit: Yes ED Registration Date: 01/29/17 Care time: The patient presented to the Emergency Department on the above date and was hospitalized for further evaluation of their emergent condition. - New Patient This patient is new to me today: No - Critical Care Critical Care patient: No
--- NOTE | 2017-01-31 18:14 | PN ---
Progress Note, Physician - Current Medication List Current Medications: Active Medications Acetaminophen (Tylenol -) 650 mg PO Q6H PRN PRN Reason: FEVER OR PAIN Aspirin (Asa -) 81 mg PO DAILY [facility] Last Admin: 01/31/17 09:46 Dose: 81 mg Heparin Sodium (Porcine) (Heparin -) 5,000 unit SQ BID [facility] Last Admin: 01/31/17 09:46 Dose: 5,000 unit Insulin Aspart (Novolog Vial Sliding Scale -) 1 vial SQ ACHS [facility] PRN Reason: Protocol Last Admin: 01/31/17 17:34 Dose: Not Given Levofloxacin (Levaquin) 750 mg PO DAILY [facility] Metformin HCl (Glucophage -) 1,000 mg PO ACBK [facility] Last Admin: 01/31/17 06:38 Dose: 1,000 mg - Objective Vital Signs: Vital Signs Temperature 97.6 F 01/31/17 14:15 Pulse Rate 64 01/31/17 14:15 Respiratory Rate 20 01/31/17 14:15 Blood Pressure 114/75 01/31/17 14:15 O2 Sat by Pulse Oximetry (%) 97 01/31/17 09:00 Labs: CBC, BMP 01/30/17 06:30 01/30/17 06:30 INR, PTT INR 1.11 (0.82-1.09) 01/29/17 14:14
[2017-01-31] MEDS ORDERED: INSULIN (NOVOLOG) ASPART 100 UNITS/ML 10ML VIAL ONE (21:34)
[2017-01-31] MEDS ORDERED: PT OWN MED DRAWER 7, Y5N ONE (21:36)
[2017-02-01] MEDS ORDERED: LEVOFLOXACIN PO SCH (06:00)
[2017-02-01] MEDS ORDERED: LEVOFLOXACIN 500 MG TABLET (FP) ONE (06:19)
[2017-02-01] MEDS ORDERED: LEVOFLOXACIN 250 MG TABLET (FP) ONE (06:19)
[2017-02-01] MEDS: INSULIN SLIDING SCALE (NOVOLOG) 1 VIAL SQ SCH (06:52)
[2017-02-01] MEDS: metFORMIN HCL 500 MG TABLET (FP) PO SCH (06:52)
[2017-02-01 06:55] VITALS: BP 118/93; PULSE 67; TEMP 98
[2017-02-01] MEDS ORDERED: LEVOFLOXACIN 750 MG TABLET PO SCH (10:00)
[2017-02-01] MEDS: HEPARIN NA (PORCINE) 5,000 UNITS/ML 1ML VIAL SQ SCH (10:57)
[2017-02-01] MEDS: ASPIRIN 81 MG CHEWABLE TABLETS PO SCH (10:57)
== END 2017-02-01 13:45 | disposition home or self-care (01) | DRG 871 ==
LOC: JER 11:49 → JERFT 11:49 → JERBED 16:48 → J5S 19:39
PROVIDERS: ADMIT Internal Medicine; ATTEND Internal Medicine
DX: A41.9 Sepsis, unspecified organism (principal); J18.9 Pneumonia, unspecified organism; E11.9 Type 2 diabetes mellitus without complications; I10 Essential (primary) hypertension; R91.1 Solitary pulmonary nodule
CPT/HCPCS: 36415; 71010-TC; 71250-TC; 80053; 81003; 81015; 82550; 82553; 83605; 84484; 85025; 85610; 85730; 86850; 86900; 86901; 87040; 87086; 87899; 93005; 93010; 99283-25; J1644

== ENCOUNTER 2022-02-11 12:01 | Inpatient (IN) | payer MEDICARE, OTHER ==
[2022-02-11 15:24] LABS: BASO % 0.7 % (0-2.0); EOS % 4.1 % (0-4.5); HEMATOCRIT 38.6 % (35.4-49); HEMOGLOBIN 12.8 GM/dL (11.7-16.9); LYMPH % 30.3 % (8-40); MCH 30.8 pg (25.7-33.7); MCHC 33.2 g/dl (32.0-35.9); MEAN CELL VOLUME 92.7 fl (80-96); MEAN PLT VOLUME 7.6 fl (7.5-11.1); MONO % 7.6 % (3.8-10.2); NEUT % 57.3 % (42.8-82.8); PLATELET COUNT 346 10^3/uL (134-434); RBC 4.16 M/mm3 (4.00-5.60); RDW 13.4 % (11.9-15.9); WHITE BLOOD COUNT 10.5 K/mm3 (4.0-10.0)
[2022-02-11 15:46] LABS: CALCIUM 8.9 mg/dL (8.5-10.1)
[2022-02-11 15:47] LABS: ALBUMIN 3.8 g/dl (3.4-5.0)
[2022-02-11 15:50] LABS: CREATININE 1.2 mg/dL (0.55-1.3)
[2022-02-11 15:52] LABS: BILIRUBIN,TOTAL 0.3 mg/dL (0.2-1); TOT PROT 8.1 g/dl (6.4-8.2)
[2022-02-11 15:55] LABS: N-TERMINAL BNP 85.9 pg/ml (5-125)
[2022-02-11] MEDS ORDERED: AZITHROMYCIN IVPB 500 MG in DEXTROSE 5%-WATER - 250 ML IVPB ONE (22:13)
[2022-02-11] MEDS ORDERED: CEFTRIAXONE 1,000 MG in DEXTROSE 5%-WATER - 50 ML IVPB ONE (22:13)
[2022-02-11] MEDS ORDERED: CEFTRIAXONE 1 GM/50 ML BAG ONE (23:12)
[2022-02-11] MEDS ORDERED: AZITHROMYCIN IVPB 500 MG/250 ML BAG IVPB ONE (23:13)
[2022-02-12] MEDS ORDERED: ALBUTEROL SO4 2.5/IPRATROPIUM 0.5 INH SOL 3 ML VIAL.NEB. NEB PRN (01:24)
[2022-02-12] MEDS ORDERED: LEVOTHYROXINE NA 50 MCG TABLET (FP) ONE (07:42)
[2022-02-12] MEDS ORDERED: HEPARIN NA (PORCINE) 5,000 UNITS/ML 1ML VIAL ONE (07:43)
[2022-02-12 10:11] LABS: BASO % 0.7 % (0-2.0); EOS % 5.9 % (0-4.5); HEMATOCRIT 36.2 % (35.4-49); LYMPH % 28.3 % (8-40); MCH 30.6 pg (25.7-33.7); MCHC 33.2 g/dl (32.0-35.9); MEAN CELL VOLUME 92.4 fl (80-96); MEAN PLT VOLUME 7.8 fl (7.5-11.1); MONO % 6.8 % (3.8-10.2); NEUT % 58.3 % (42.8-82.8); PLATELET COUNT 314 10^3/uL (134-434); RBC 3.91 M/mm3 (4.00-5.60); RDW 13.6 % (11.9-15.9); WHITE BLOOD COUNT 11.2 K/mm3 (4.0-10.0)
[2022-02-12 10:44] LABS: CALCIUM 8.5 mg/dL (8.5-10.1); MAGNESIUM 2.3 mg/dL (1.8-2.4)
[2022-02-12 10:45] LABS: ALBUMIN 3.3 g/dl (3.4-5.0)
[2022-02-12 10:48] LABS: CREATININE 1.2 mg/dL (0.55-1.3); PHOSPHOROUS 3.2 mg/dL (2.5-4.9)
[2022-02-12 10:49] LABS: BILIRUBIN,TOTAL 0.4 mg/dL (0.2-1); TOT PROT 7.2 g/dl (6.4-8.2)
[2022-02-12] MEDS: predniSONE 20 MG TABLET (UD) PO SCH (11:36)
[2022-02-12] MEDS: LISINOPRIL 10 MG TABLET PO SCH (11:36)
[2022-02-12] MEDS: LEVOTHYROXINE NA 50 MCG TABLET (FP) PO SCH (11:37)
[2022-02-12] MEDS: ENOXAPARIN NA (PORCINE) 40 MG/0.4 ML DISP.SYRIN SQ SCH (11:50)
[2022-02-12 12:29] VITALS: BMI 33.5
[2022-02-12] MEDS: CEFTRIAXONE 1 GM in DEXTROSE 5%-WATER - 50 ML IVPB SCH (16:00)
[2022-02-12 18:42] LABS: PH,URINE 7.5 (5.0-8.0); URINE APPEARANCE CLEAR; URINE BILIRUBIN NEGATIVE (NEGATIVE); URINE COLOR YELLOW; URINE GLUCOSE (UA) TRACE (NEGATIVE); URINE KETONE NEGATIVE (NEGATIVE); URINE LEUK ESTERASE NEGATIVE (NEGATIVE); URINE NITRITE NEGATIVE (NEGATIVE); URINE PROTEIN NEGATIVE (NEGATIVE); URINE UROBILINOGEN 0.2 mg/dL (0.2-1.0)
[2022-02-12] MEDS: ATORVASTATIN CA 40 MG TABLET (FP) PO SCH (21:26)
[2022-02-13] MEDS: LEVOTHYROXINE NA 50 MCG TABLET (FP) PO SCH (07:33)
[2022-02-13] MEDS: ENOXAPARIN NA (PORCINE) 40 MG/0.4 ML DISP.SYRIN SQ SCH (09:02)
[2022-02-13] MEDS: AZITHROMYCIN 250 MG TABLET PO SCH (09:02)
[2022-02-13] MEDS: LISINOPRIL 10 MG TABLET PO SCH (09:02)
[2022-02-13] MEDS: predniSONE 20 MG TABLET (UD) PO SCH (09:02)
[2022-02-13 09:46] LABS: BASO % 0.3 % (0-2.0); EOS % 1.5 % (0-4.5); HEMATOCRIT 37.8 % (35.4-49); HEMOGLOBIN 12.2 GM/dL (11.7-16.9); LYMPH % 29.6 % (8-40); MCH 30.3 pg (25.7-33.7); MCHC 32.3 g/dl (32.0-35.9); MEAN CELL VOLUME 93.7 fl (80-96); MEAN PLT VOLUME 7.5 fl (7.5-11.1); MONO % 7.2 % (3.8-10.2); NEUT % 61.4 % (42.8-82.8); PLATELET COUNT 312 10^3/uL (134-434); RBC 4.03 M/mm3 (4.00-5.60); RDW 13.5 % (11.9-15.9); WHITE BLOOD COUNT 13.2 K/mm3 (4.0-10.0)
[2022-02-13 10:09] LABS: BLOOD UREA NITROGEN 16.4 mg/dL (7-18); CALCIUM 8.7 mg/dL (8.5-10.1); MAGNESIUM 2.4 mg/dL (1.8-2.4)
[2022-02-13 10:10] LABS: ALBUMIN 3.3 g/dl (3.4-5.0)
[2022-02-13 10:12] LABS: CREATININE 1.2 mg/dL (0.55-1.3); PHOSPHOROUS 3.4 mg/dL (2.5-4.9)
[2022-02-13 10:14] LABS: BILIRUBIN,TOTAL 0.5 mg/dL (0.2-1); TOT PROT 7.3 g/dl (6.4-8.2)
[2022-02-13 10:37] VITALS: RESP 18
[2022-02-13] MEDS: CEFTRIAXONE 1 GM in DEXTROSE 5%-WATER - 50 ML IVPB SCH (14:51)
[2022-02-13] MEDS: ATORVASTATIN CA 40 MG TABLET (FP) PO SCH (22:00)
[2022-02-13] MEDS: BUDESONIDE/FORMETEROL FUMARATE 80/4.5 mcg INHALER IH SCH (22:01)
[2022-02-14] MEDS: LEVOTHYROXINE NA 50 MCG TABLET (FP) PO SCH (06:16)
[2022-02-14] MEDS: PANTOPRAZOLE 40 MG TABLET PO SCH (09:10)
[2022-02-14] MEDS: LISINOPRIL 10 MG TABLET PO SCH (09:10)
[2022-02-14] MEDS: AZITHROMYCIN 250 MG TABLET PO SCH (09:11)
[2022-02-14] MEDS: ENOXAPARIN NA (PORCINE) 40 MG/0.4 ML DISP.SYRIN SQ SCH (09:11)
[2022-02-14] MEDS: predniSONE 20 MG TABLET (UD) PO SCH (09:11)
[2022-02-14] MEDS: BUDESONIDE/FORMETEROL FUMARATE 80/4.5 mcg INHALER IH SCH ×2 (09:16→21:27)
[2022-02-14 11:46] LABS: BASO % 0.3 % (0-2.0); EOS % 0.8 % (0-4.5); HEMATOCRIT 38.4 % (35.4-49); HEMOGLOBIN 12.5 GM/dL (11.7-16.9); LYMPH % 28.2 % (8-40); MCH 30.2 pg (25.7-33.7); MCHC 32.4 g/dl (32.0-35.9); MEAN CELL VOLUME 93.1 fl (80-96); MONO % 7.3 % (3.8-10.2); NEUT % 63.4 % (42.8-82.8); PLATELET COUNT 353 10^3/uL (134-434); RBC 4.12 M/mm3 (4.00-5.60); RDW 13.6 % (11.9-15.9); WHITE BLOOD COUNT 15.9 K/mm3 (4.0-10.0)
[2022-02-14 12:17] LABS: ALBUMIN 3.7 g/dl (3.4-5.0); CALCIUM 9.2 mg/dL (8.5-10.1); MAGNESIUM 2.4 mg/dL (1.8-2.4)
[2022-02-14 12:32] LABS: BILIRUBIN,TOTAL 0.4 mg/dL (0.2-1); CREATININE 1.1 mg/dL (0.55-1.3); PHOSPHOROUS 3.8 mg/dL (2.5-4.9); TOT PROT 7.8 g/dl (6.4-8.2)
[2022-02-14] MEDS: CEFTRIAXONE 1 GM in DEXTROSE 5%-WATER - 50 ML IVPB SCH (14:51)
[2022-02-14] MEDS: ATORVASTATIN CA 40 MG TABLET (FP) PO SCH (21:27)
[2022-02-15] MEDS: LEVOTHYROXINE NA 50 MCG TABLET (FP) PO SCH (06:19)
[2022-02-15] MEDS: ENOXAPARIN NA (PORCINE) 40 MG/0.4 ML DISP.SYRIN SQ SCH (09:21)
[2022-02-15] MEDS: PANTOPRAZOLE 40 MG TABLET PO SCH (09:21)
[2022-02-15] MEDS: LISINOPRIL 10 MG TABLET PO SCH (09:21)
[2022-02-15] MEDS: AZITHROMYCIN 250 MG TABLET PO SCH (09:22)
[2022-02-15] MEDS: predniSONE 20 MG TABLET (UD) PO SCH (09:22)
[2022-02-15] MEDS: BUDESONIDE/FORMETEROL FUMARATE 80/4.5 mcg INHALER IH SCH (09:24)
[2022-02-15 12:25] LABS: BASO % 0.2 % (0-2.0); EOS % 0.4 % (0-4.5); HEMATOCRIT 37.8 % (35.4-49); HEMOGLOBIN 12.4 GM/dL (11.7-16.9); LYMPH % 21.3 % (8-40); MCH 30.4 pg (25.7-33.7); MCHC 32.8 g/dl (32.0-35.9); MEAN CELL VOLUME 92.8 fl (80-96); MEAN PLT VOLUME 7.5 fl (7.5-11.1); MONO % 7.2 % (3.8-10.2); NEUT % 70.9 % (42.8-82.8); PLATELET COUNT 358 10^3/uL (134-434); RBC 4.07 M/mm3 (4.00-5.60); RDW 13.7 % (11.9-15.9); WHITE BLOOD COUNT 16.9 K/mm3 (4.0-10.0)
[2022-02-15 12:53] LABS: CALCIUM 9.3 mg/dL (8.5-10.1)
[2022-02-15 12:54] LABS: ALBUMIN 3.7 g/dl (3.4-5.0); BLOOD UREA NITROGEN 20.9 mg/dL (7-18); MAGNESIUM 2.3 mg/dL (1.8-2.4)
[2022-02-15 12:57] LABS: CREATININE 1.2 mg/dL (0.55-1.3); PHOSPHOROUS 3.2 mg/dL (2.5-4.9)
[2022-02-15 12:58] LABS: TOT PROT 7.9 g/dl (6.4-8.2)
[2022-02-15 12:59] LABS: BILIRUBIN,TOTAL 0.4 mg/dL (0.2-1)
[2022-02-15 13:47] VITALS: BP 123/61; TEMP 98.6
[2022-02-15] MEDS: CEFTRIAXONE 1 GM in DEXTROSE 5%-WATER - 50 ML IVPB SCH (14:45)
[2022-02-15 16:13] VITALS: PULSE 83
== END 2022-02-15 16:51 | disposition home or self-care (01) | DRG 196 ==
LOC: JER 12:01 → JERBED 19:47 → J6S 02-12 09:57
PROVIDERS: ADMIT Internal Medicine; ATTEND Internal Medicine
DX: J84.9 Interstitial pulmonary disease, unspecified (principal); J96.01 Acute respiratory failure with hypoxia; M35.81 Multisystem inflammatory syndrome; I10 Essential (primary) hypertension; E11.9 Type 2 diabetes mellitus without complications; E03.9 Hypothyroidism, unspecified; K21.9 Gastro-esophageal reflux disease without esophagitis; Z86.16 Personal history of COVID-19
CPT/HCPCS: 0241U-QW; 36415; 71046-TC-FY; 71250-TC; 80053; 81003; 82962; 83735; 83880; 84100; 84443; 84484; 85025; 87070; 87205; 87899; 93005; 93010; 93306-TC; 94010; 94761; 97116-GP; 97161-GP; 99285-25

== ENCOUNTER 2023-10-20 11:00 | Emergency (ER) | payer MEDICARE, OTHER ==
[2023-10-20 11:05] VITALS: BMI 30.5
[2023-10-20 11:51] LABS: BASO % 0.5 % (0-2.0); EOS % 5.1 % (0-4.5); HEMATOCRIT 34.7 % (35.4-49); HEMOGLOBIN 11.4 GM/dL (11.7-16.9); LYMPH % 17.3 % (8-40); MCH 30.7 pg (25.7-33.7); MCHC 32.8 g/dl (32.0-35.9); MEAN CELL VOLUME 93.7 fl (80-96); MEAN PLT VOLUME 6.7 fl (7.5-11.1); MONO % 6.2 % (3.8-10.2); NEUT % 70.9 % (42.8-82.8); PLATELET COUNT 300 10^3/uL (134-434); RBC 3.71 M/mm3 (4.00-5.60); RDW 14.5 % (11.9-15.9); WHITE BLOOD COUNT 14.8 K/mm3 (4.0-10.0)
[2023-10-20 11:57] LABS: INR 1.01 (0.83-1.09); PROTHROMBIN TIME (PATIENT) 11.4 SEC (9.7-13.0)
[2023-10-20 12:00] LABS: ACTIVATED PTT 29.4 SECONDS (25.2-36.5)
[2023-10-20 12:13] LABS: CHLORIDE 98 mmol/L (98-107); POTASSIUM 4.3 mmol/L (3.5-5.1); SODIUM 133 mmol/L (136-145)
[2023-10-20 12:15] LABS: CALCIUM 8.6 mg/dL (8.5-10.1)
[2023-10-20 12:16] LABS: ALBUMIN 2.8 g/dl (3.4-5.0); ANION GAP 7 mmol/L (4-13); BLOOD UREA NITROGEN 18.6 mg/dL (7-18); CO2 28 mmol/L (21-32); GLUCOSE,RANDOM 169 mg/dL (74-106)
[2023-10-20 12:17] LABS: MAGNESIUM 2.1 mg/dL (1.8-2.4)
[2023-10-20 12:19] LABS: CREATININE 1.1 mg/dL (0.55-1.3); SGOT/AST 28 U/L (15-37); SGPT/ALT 22 U/L (13-61)
[2023-10-20 12:21] LABS: TOT PROT 6.7 g/dl (6.4-8.2)
[2023-10-20 12:22] LABS: ALK PHOS 41 U/L (45-117)
[2023-10-20] MEDS: SODIUM CHLORIDE 0.9% 500 ML INFUS.BAG IV ONE (12:24)
[2023-10-20 12:27] LABS: BILIRUBIN,TOTAL < 0.1 mg/dL (0.2-1)
[2023-10-20 12:35] LABS: EPI CELLS 2 /uL (0-25.1); HYALINE CASTS 0 /uL (0-3.1); PH,URINE 6.5 (5.0-8.0); URINE APPEARANCE CLEAR; URINE BACTERIA 29 /uL (0-1359); URINE BILIRUBIN NEGATIVE (NEGATIVE); URINE COLOR YELLOW; URINE GLUCOSE (UA) NEGATIVE (NEGATIVE); URINE KETONE NEGATIVE (NEGATIVE); URINE LEUK ESTERASE NEGATIVE (NEGATIVE); URINE NITRITE NEGATIVE (NEGATIVE); URINE PROTEIN 2+ (NEGATIVE); URINE RBC 78 /uL (0-23.9); URINE WBC 3 /uL (0-25.8)
[2023-10-20 13:16] VITALS: BP 137/81; PULSE 87; RESP 20; TEMP 98.8
== END 2023-10-20 13:17 | disposition home or self-care (01) ==
LOC: JER 11:00
DX: U07.1 COVID-19 (principal); R53.1 Weakness
CPT/HCPCS: 0241U-QW; 36415; 71045-TC-FY; 80053; 81003; 82962; 83735; 84100; 84443; 84484; 85025; 85610; 85730; 87086; 93005; 93010; 99285-25

== ENCOUNTER 2023-12-26 14:22 | Inpatient (IN) | payer OTHER ==
[2023-12-26 16:18] LABS: BASO % 0.4 % (0-2.0); EOS % 3.8 % (0-4.5); HEMATOCRIT 34.7 % (35.4-49); HEMOGLOBIN 11.3 GM/dL (11.7-16.9); LYMPH % 12.6 % (8-40); MCH 30.7 pg (25.7-33.7); MCHC 32.7 g/dl (32.0-35.9); MEAN CELL VOLUME 93.8 fl (80-96); MEAN PLT VOLUME 6.5 fl (7.5-11.1); MONO % 3.1 % (3.8-10.2); NEUT % 80.1 % (42.8-82.8); PLATELET COUNT 337 10^3/uL (134-434); RBC 3.69 M/mm3 (4.00-5.60); RDW 14.6 % (11.9-15.9); WHITE BLOOD COUNT 10.5 K/mm3 (4.0-10.0)
[2023-12-26 16:27] LABS: INR 1.01 (0.83-1.09); PROTHROMBIN TIME (PATIENT) 11.4 SEC (9.7-13.0)
[2023-12-26 16:30] LABS: ACTIVATED PTT 31.6 SECONDS (25.2-36.5)
[2023-12-26] MEDS ORDERED: CEFTRIAXONE 1 GM/50 ML BAG ONE (17:37)
[2023-12-26] MEDS ORDERED: AZITHROMYCIN 500 MG TABLET ONE ×2 (17:37→17:41)
[2023-12-26] MEDS: AZITHROMYCIN 500 MG TABLET PO ONE (17:49)
[2023-12-26] MEDS: CEFTRIAXONE 1,000 MG in DEXTROSE 5%-WATER - 50 ML IVPB ONE (17:49)
[2023-12-26 18:06] LABS: POTASSIUM 4.1 mmol/L (3.5-5.1)
[2023-12-26 18:08] LABS: CALCIUM 8.9 mg/dL (8.5-10.1)
[2023-12-26 18:09] LABS: ALBUMIN 2.9 g/dl (3.4-5.0); BLOOD UREA NITROGEN 15.5 mg/dL (7-18)
[2023-12-26 18:12] LABS: CREATININE 0.9 mg/dL (0.55-1.3)
[2023-12-26 18:13] LABS: BILIRUBIN,TOTAL 0.2 mg/dL (0.2-1)
[2023-12-26] MEDS: PANTOPRAZOLE 40 MG TABLET PO SCH (22:23)
[2023-12-26] MEDS: ATORVASTATIN CA 40 MG TABLET (FP) PO SCH (22:23)
[2023-12-26] MEDS: ENOXAPARIN NA (PORCINE) 40 MG/0.4 ML DISP.SYRIN SQ SCH (22:24)
[2023-12-27 03:51] VITALS: BMI 24.3
[2023-12-27] MEDS: LEVOTHYROXINE NA 50 MCG TABLET (FP) PO SCH (06:28)
[2023-12-27] MEDS: INSULIN ASPART SLIDING SCALE (NOVOLOG) 1 VIAL SQ SCH (06:28)
[2023-12-27] MEDS: LISINOPRIL 10 MG TABLET PO SCH (09:10)
[2023-12-27 10:22] LABS: BASO % 0.5 % (0-2.0); EOS % 6.1 % (0-4.5); HEMATOCRIT 33.1 % (35.4-49); HEMOGLOBIN 11.1 GM/dL (11.7-16.9); LYMPH % 21.2 % (8-40); MCH 31.1 pg (25.7-33.7); MCHC 33.4 g/dl (32.0-35.9); MEAN PLT VOLUME 7.1 fl (7.5-11.1); MONO % 7.3 % (3.8-10.2); NEUT % 64.9 % (42.8-82.8); PLATELET COUNT 338 10^3/uL (134-434); RBC 3.55 M/mm3 (4.00-5.60); RDW 14.3 % (11.9-15.9); WHITE BLOOD COUNT 12.1 K/mm3 (4.0-10.0)
[2023-12-27] MEDS: methylPREDNISolone NA SUCC 40 MG/1 ML VIAL IVPUSH SCH (13:04)
[2023-12-27] MEDS: AZITHROMYCIN IVPB 500 MG/250 ML BAG IVPB SCH (13:05)
[2023-12-27] MEDS: ALBUTEROL SO4 2.5/IPRATROPIUM 0.5 INH SOL 3 ML VIAL.NEB. NEB SCH (13:33)
[2023-12-27] MEDS: CEFTRIAXONE 1 GM in DEXTROSE 5%-WATER - 50 ML IVPB SCH (14:45)
[2023-12-28] MEDS: CEFTRIAXONE 1 G/50 ML PREMIX 50 ML IVPB SCH (09:15)
[2023-12-29] MEDS: ALBUTEROL SO4 0.083% IH SOL 2.5 MG/3 ML VIAL.NEB. NEB PRN (09:07)
[2023-12-29 14:27] VITALS: RESP 18
[2023-12-30] MEDS: NINTEDANIB 150 MG PO SCH (21:16)
[2024-01-01] MEDS ORDERED: INSULIN ASPART SLIDING SCALE (NOVOLOG) 1 VIAL SQ ONE (17:22)
[2024-01-02 08:40] VITALS: BP 112/74; TEMP 99
[2024-01-02 11:37] VITALS: PULSE 88
[2024-01-02] MEDS ORDERED: CEFUROXIME AXETIL 500 MG TABLET PO SCH (22:00)
== END 2024-01-02 13:31 | disposition home or self-care (01) | DRG 195 ==
LOC: JER 14:22 → JERBED 18:16 → J6S 20:06
PROVIDERS: ADMIT Internal Medicine; ATTEND Internal Medicine
DX: J18.9 Pneumonia, unspecified organism (principal); I10 Essential (primary) hypertension; E11.9 Type 2 diabetes mellitus without complications; K21.9 Gastro-esophageal reflux disease without esophagitis; E03.9 Hypothyroidism, unspecified; J84.10 Pulmonary fibrosis, unspecified; R09.02 Hypoxemia
CPT/HCPCS: 36415; 71045-TC-FY; 80053; 82728; 82962; 83036; 83540; 83550; 84484; 85025; 85610; 85730; 87070; 87205; 87899; 93005; 93010; 94640; 94761; 99285-25

== ENCOUNTER 2024-03-19 12:53 | Inpatient (IN) | payer OTHER ==
[2024-03-19 13:45] LABS: VENOUS BASE EXCESS 8.7 mmol/L (-2-2); VENOUS O2 SATURATION 73.8 % (70-80); VENOUS PCO2 67.1 mmHg (38-52); VENOUS PH 7.353 (7.310-7.410)
[2024-03-19 13:46] LABS: BASO % 0.7 % (0-2.0); EOS % 2.7 % (0-4.5); HEMATOCRIT 31.4 % (35.4-49); HEMOGLOBIN 10.3 GM/dL (11.7-16.9); LYMPH % 12.1 % (8-40); MCH 30.6 pg (25.7-33.7); MCHC 32.8 g/dl (32.0-35.9); MEAN CELL VOLUME 93.3 fl (80-96); MEAN PLT VOLUME 6.5 fl (7.5-11.1); MONO % 7.9 % (3.8-10.2); NEUT % 76.6 % (42.8-82.8); PLATELET COUNT 497 10^3/uL (134-434); RBC 3.37 M/mm3 (4.00-5.60); RDW 14.5 % (11.9-15.9); WHITE BLOOD COUNT 11.2 K/mm3 (4.0-10.0)
[2024-03-19 13:53] LABS: INR 1.07 (0.83-1.09); PROTHROMBIN TIME (PATIENT) 12.3 SEC (9.7-13.0)
[2024-03-19 13:56] LABS: ACTIVATED PTT 32.7 SECONDS (25.2-36.5)
[2024-03-19 14:18] LABS: POTASSIUM 4.6 mmol/L (3.5-5.1)
[2024-03-19 14:21] LABS: ALBUMIN 2.2 g/dl (3.4-5.0); CALCIUM 8.8 mg/dL (8.5-10.1)
[2024-03-19 14:25] LABS: BILIRUBIN,TOTAL 0.4 mg/dL (0.2-1); CREATININE 0.7 mg/dL (0.55-1.3); TOT PROT 6.3 g/dl (6.4-8.2)
[2024-03-19] MEDS ORDERED: PANTOPRAZOLE 40 MG TABLET PO ONE (16:31)
[2024-03-19] MEDS ORDERED: ASPIRIN COATED 81 MG TABLET.EC ONE (16:31)
[2024-03-19] MEDS: PANTOPRAZOLE 40 MG TABLET PO SCH (16:49)
[2024-03-19] MEDS: ASPIRIN COATED 81 MG TABLET.EC PO SCH (16:49)
[2024-03-19 18:55] VITALS: BMI 23.9
[2024-03-19] MEDS: ALBUTEROL SO4 2.5/IPRATROPIUM 0.5 INH SOL 3 ML VIAL.NEB. NEB PRN (19:57)
[2024-03-19] MEDS: HEPARIN NA (PORCINE) 5,000 UNITS/ML 1ML VIAL SQ SCH (21:30)
[2024-03-19] MEDS: ATORVASTATIN CA 40 MG TABLET (FP) PO SCH (21:30)
[2024-03-19] MEDS: PNEUMOC 20-VAL CONJ-DIP CRM/PF 0.5 ML SYRINGE IM ONE (21:31)
[2024-03-19] MEDS: BUDESONIDE/FORMETEROL FUMARATE 80/4.5 mcg INHALER IH SCH (22:35)
[2024-03-20] MEDS: INSULIN ASPART SLIDING SCALE (NOVOLOG) 1 VIAL SQ SCH (06:34)
[2024-03-20] MEDS: LEVOTHYROXINE NA 50 MCG TABLET (FP) PO SCH (06:36)
[2024-03-20 09:59] LABS: BASO % 0.1 % (0-2.0); EOS % 0.1 % (0-4.5); HEMOGLOBIN 10.3 GM/dL (11.7-16.9); LYMPH % 10.1 % (8-40); MCH 31.1 pg (25.7-33.7); MCHC 33.3 g/dl (32.0-35.9); MEAN CELL VOLUME 93.5 fl (80-96); MEAN PLT VOLUME 6.5 fl (7.5-11.1); MONO % 4.6 % (3.8-10.2); NEUT % 85.1 % (42.8-82.8); PLATELET COUNT 506 10^3/uL (134-434); RBC 3.32 M/mm3 (4.00-5.60); RDW 14.4 % (11.9-15.9); WHITE BLOOD COUNT 11.6 K/mm3 (4.0-10.0)
[2024-03-20 10:16] LABS: POTASSIUM 4.9 mmol/L (3.5-5.1)
[2024-03-20 10:17] LABS: CALCIUM 8.8 mg/dL (8.5-10.1)
[2024-03-20 10:18] LABS: BLOOD UREA NITROGEN 15.7 mg/dL (7-18)
[2024-03-20 10:21] LABS: CREATININE 0.7 mg/dL (0.55-1.3)
[2024-03-20] MEDS: LISINOPRIL 10 MG TABLET PO SCH (10:44)
[2024-03-20] MEDS: CLOPIDOGREL BISULFATE 75 MG TABLET (FP) PO SCH (10:44)
[2024-03-20] MEDS: SODIUM CHLORIDE 1 GM TABLET PO SCH (11:49)
[2024-03-20] MEDS: IRON SUCROSE INJECTION 300 MG in SODIUM CHLORIDE 235 ML IVPB ONE (13:27)
[2024-03-21 08:21] LABS: BASO % 0.2 % (0-2.0); EOS % 1.6 % (0-4.5); HEMATOCRIT 27.9 % (35.4-49); HEMOGLOBIN 9.4 GM/dL (11.7-16.9); LYMPH % 9.4 % (8-40); MCH 31.3 pg (25.7-33.7); MCHC 33.6 g/dl (32.0-35.9); MEAN PLT VOLUME 6.7 fl (7.5-11.1); MONO % 7.1 % (3.8-10.2); NEUT % 81.7 % (42.8-82.8); PLATELET COUNT 491 10^3/uL (134-434); RDW 14.6 % (11.9-15.9); WHITE BLOOD COUNT 14.2 K/mm3 (4.0-10.0)
[2024-03-21 08:48] LABS: POTASSIUM 4.9 mmol/L (3.5-5.1)
[2024-03-21 09:11] LABS: BLOOD UREA NITROGEN 16.1 mg/dL (7-18)
[2024-03-21 09:13] LABS: CALCIUM 8.9 mg/dL (8.5-10.1)
[2024-03-21 09:14] LABS: CREATININE 0.7 mg/dL (0.55-1.3)
[2024-03-22] MEDS: ACETAMINOPHEN 325 MG TABLET (FP) PO PRN (09:05)
[2024-03-22 09:48] LABS: BASO % 0.2 % (0-2.0); EOS % 4.6 % (0-4.5); HEMATOCRIT 29.7 % (35.4-49); HEMOGLOBIN 9.9 GM/dL (11.7-16.9); LYMPH % 10.9 % (8-40); MCH 31.4 pg (25.7-33.7); MCHC 33.5 g/dl (32.0-35.9); MEAN CELL VOLUME 93.8 fl (80-96); MEAN PLT VOLUME 6.7 fl (7.5-11.1); MONO % 7.8 % (3.8-10.2); NEUT % 76.5 % (42.8-82.8); PLATELET COUNT 513 10^3/uL (134-434); RBC 3.17 M/mm3 (4.00-5.60); RDW 14.5 % (11.9-15.9); WHITE BLOOD COUNT 11.6 K/mm3 (4.0-10.0)
[2024-03-22 10:13] LABS: POTASSIUM 4.7 mmol/L (3.5-5.1)
[2024-03-22 10:14] LABS: CALCIUM 8.7 mg/dL (8.5-10.1)
[2024-03-22 10:18] LABS: CREATININE 0.7 mg/dL (0.55-1.3)
[2024-03-22] MEDS: ASPIRIN COATED 81 MG TABLET.EC PO SCH (15:24)
[2024-03-22] MEDS: CLOPIDOGREL BISULFATE 75 MG TABLET (FP) PO SCH (15:24)
[2024-03-22] MEDS: NINTEDANIB 150 MG PO SCH (18:27)
[2024-03-23] MEDS: MAG HYDROX/AL HYDROX/SIMETH 30 ML UNIT-DOSE CUP PO ONE (14:31)
[2024-03-24 07:48] LABS: BASO % 0.4 % (0-2.0); EOS % 0.5 % (0-4.5); HEMATOCRIT 31.6 % (35.4-49); MCH 30.5 pg (25.7-33.7); MCHC 31.7 g/dl (32.0-35.9); MEAN CELL VOLUME 96.1 fl (80-96); MEAN PLT VOLUME 6.6 fl (7.5-11.1); MONO % 7.3 % (3.8-10.2); NEUT % 82.8 % (42.8-82.8); PLATELET COUNT 596 10^3/uL (134-434); RBC 3.29 M/mm3 (4.00-5.60); RDW 14.3 % (11.9-15.9)
[2024-03-24 07:49] LABS: POTASSIUM 4.8 mmol/L (3.5-5.1)
[2024-03-24 07:50] LABS: BLOOD UREA NITROGEN 18.6 mg/dL (7-18); CALCIUM 8.8 mg/dL (8.5-10.1)
[2024-03-24 07:54] LABS: CREATININE 0.7 mg/dL (0.55-1.3)
[2024-03-24 22:24] VITALS: RESP 20
[2024-03-25 08:30] LABS: BASO % 0.3 % (0-2.0); HEMATOCRIT 30.4 % (35.4-49); HEMOGLOBIN 10.1 GM/dL (11.7-16.9); MCH 31.6 pg (25.7-33.7); MCHC 33.4 g/dl (32.0-35.9); MEAN CELL VOLUME 94.6 fl (80-96); MEAN PLT VOLUME 6.6 fl (7.5-11.1); MONO % 7.4 % (3.8-10.2); NEUT % 80.3 % (42.8-82.8); PLATELET COUNT 566 10^3/uL (134-434); RBC 3.21 M/mm3 (4.00-5.60); RDW 14.2 % (11.9-15.9)
[2024-03-25 08:49] LABS: POTASSIUM 4.9 mmol/L (3.5-5.1)
[2024-03-25 08:55] LABS: CALCIUM 8.8 mg/dL (8.5-10.1)
[2024-03-25 08:59] LABS: CREATININE 0.7 mg/dL (0.55-1.3)
[2024-03-26 07:47] LABS: BASO % 0.5 % (0-2.0); EOS % 8.6 % (0-4.5); HEMATOCRIT 30.4 % (35.4-49); HEMOGLOBIN 9.9 GM/dL (11.7-16.9); LYMPH % 9.7 % (8-40); MCH 31.1 pg (25.7-33.7); MCHC 32.5 g/dl (32.0-35.9); MEAN CELL VOLUME 95.8 fl (80-96); MEAN PLT VOLUME 6.6 fl (7.5-11.1); MONO % 7.7 % (3.8-10.2); NEUT % 73.5 % (42.8-82.8); PLATELET COUNT 607 10^3/uL (134-434); RBC 3.17 M/mm3 (4.00-5.60); RDW 14.2 % (11.9-15.9); WHITE BLOOD COUNT 13.2 K/mm3 (4.0-10.0)
[2024-03-26 08:01] LABS: CALCIUM 8.9 mg/dL (8.5-10.1)
[2024-03-26 08:02] LABS: BLOOD UREA NITROGEN 17.4 mg/dL (7-18)
[2024-03-26 08:05] LABS: CREATININE 0.6 mg/dL (0.55-1.3)
[2024-03-26 08:31] LABS: POTASSIUM 4.7 mmol/L (3.5-5.1)
[2024-03-26] MEDS: IRON SUCROSE INJECTION 300 MG in SODIUM CHLORIDE 235 ML IVPB ONE (10:47)
[2024-03-26 14:25] VITALS: BP 121/81; PULSE 94; TEMP 97.3
== END 2024-03-26 18:24 | disposition hospice, inpatient (51) | DRG 189 ==
LOC: JER 12:53 → JERBED 16:22 → J7W 18:14
PROVIDERS: ADMIT Internal Medicine; ATTEND Internal Medicine
DX: J96.01 Acute respiratory failure with hypoxia (principal); J84.9 Interstitial pulmonary disease, unspecified; E87.1 Hypo-osmolality and hyponatremia; E11.9 Type 2 diabetes mellitus without complications; I10 Essential (primary) hypertension; E03.9 Hypothyroidism, unspecified; K21.9 Gastro-esophageal reflux disease without esophagitis; Z99.81 Dependence on supplemental oxygen; J84.10 Pulmonary fibrosis, unspecified; W19.XXXA Unspecified fall, initial encounter; Y93.89 Activity, other specified; Y92.230 Patient room in hospital as the place of occurrence of the external cause; Y99.8 Other external cause status
CPT/HCPCS: 0241U-QW; 36415; 70450-TC; 70486-TC; 71045-TC-FY; 80048; 80053; 82436; 82728; 82803; 82962; 83540; 83550; 83880; 83930; 83935; 84133; 84155; 84165; 84300; 84484; 85025; 85610; 85730; 90677; 93005; 93010; 94640; 99285-25; G0009; J1644; J1756